=== PATIENT | female | born 1940 | race Caucasian/White ===

== ENCOUNTER → 2016-09-16 | Outpatient (CLI) | payer MEDICARE ==
[~2016-09-16] MED LIST: ASPIR-LOW81 MG PO; ATENOLOL50 MG PO; BENADRYL25 MG PO; BUMETANIDE0.5 MG PO; BUMETANIDE1 MG PO; BUSPAR5 MG PO; CARDIZEM CD120 MG PO; CARDIZEM CD240 M1 PO; CARDIZEM CD240 MG PO; CIPROFLOXACIN500 MG PO; COLACE1 SUP; COUMADIN PO; COUMADIN4 M1 PO; COUMADIN5 M2 PO; COUMADIN6 MG PO; DAILY VITAMIN1 EAC2 PO; DAYPRO600 M1 PO; DOCUSOFT-S100 MG PO; FLECAINIDE ACE100 MG PO; HYDROCODONE BIT1 T11 PO; LAMICTAL100 MG PO; LEVOTHYROXINE0.1 M1 PO; LEVOTHYROXINE0.1 MG PO; MACROBID100 M1 PO; MIRALAX POWDER17 G1 PO; MIRALAX17 GM/DOSE; MIRALAX17 GM/PACK PO; NOVAPLUS V0.09 MG/Ac INH; PEPCID20 MG PO; POTASSIUM CHLO10 ME5 PO; PROAIR HFA8.5 GM INH; QVAR0.08 MG/AC IH; QVAR0.08 MG/AC INH; SENOKOT; STOOL SOFT60 MG/15 M; SYNTHROID0.1 MG PO; SYNTHROID0.112 MG PO; TORADOL60 MG/2 ML PO; TRAMADOL HCL50 MG; TYLENOL325 M1 PO; VICODIN 500 MG-1 TAB PO; VITAMIN B125000 MCG SL; ZITHROMAX Z PA250 MG PO; ZOCOR20 MG PO; ZOFRAN2 MG/ML IJ; ZOFRAN4 MG PO; Zofran4 MG PO; [UNRECOGNIZED DRUG - OTHER] PO
[2016-09-16 09:38] LABS: BASO % 0.2 % (0.0-1.0); EOS # 0.1 10*3/uL (0.0-0.4); HEMATOCRIT 39.9 % (37.0-47.0); LYMPH # 1.4 10*3/uL (1.3-4.4); LYMPH % 31.8 % (27.0-41.0); MEAN CELL VOLUME 93.7 fl (81.0-99.0); MEAN CORPUSCULAR HGB 30.5 pg (27.0-31.0); MEAN CORPUSCULAR HGB CONC 32.6 g/dl (33.0-37.0); MEAN PLATELET VOLUME 10.4 fl (9.6-12.3); MONO # 0.3 10*3/uL (0.1-1.0); MONO % 7.2 % (3.0-9.0); NEUT # 2.5 10*3/uL (2.3-7.9); NEUT % 57.8 % (47.0-73.0); PLATELET COUNT AUTOMATED 226 10*3/uL (130-400); RED BLOOD COUNT 4.26 10*6/uL (4.10-5.10); WHITE BLOOD COUNT 4.3 10*3/uL (4.8-10.8)
[2016-09-16 09:57] LABS: HEMOGLOBIN A1c 6.1 % (4.8-5.6)
[2016-09-16 10:16] LABS: ALBUMIN 4.1 gm/dl (3.1-4.5); BILIRUBIN, DIRECT 0.1 mg/dL (0.0-0.2); BILIRUBIN, TOTAL 0.6 mg/dl (0.2-1.0); POTASSIUM 3.9 mmol/L (3.5-5.1); THYROXINE (T4) TOTAL 12.1 ug/dl (4.8-13.9); TOTAL PROTEIN 7.6 gm/dL (6.4-8.2)
[2016-09-16 10:20] LABS: THYROID STIM HORMONE (HS) 6.03 uIU/ml (0.358-4.75)
== END | disposition home or self-care (01) ==
LOC: LAB 09:05 → RAD 13:30
PROVIDERS: Family Medicine
DX: I10 Essential (primary) hypertension (principal); I48.91 Unspecified atrial fibrillation; E03.9 Hypothyroidism, unspecified; M81.0 Age-related osteoporosis without current pathological fracture; R73.9 Hyperglycemia, unspecified

== ENCOUNTER 2016-10-30 01:10 | Inpatient (IN) | payer MEDICARE ==
[~2016-10-30] VITALS: Ht 180.3 cm; Wt 66.8 kg
[2016-10-30] VITALS (7 sets, daily range): BP systolic 130–153; BP diastolic 64–96
--- NOTE | ~2016-10-30 | CON ---
[place], [place] REPORT OF CONSULTATION NAME: [id number] UN[facility] #: [id number] ROOM: 428 DOCTOR: DEVAN INFANTEALECIA BIRTHDATE: [birth year] DOS: 10/31/2016 HISTORY OF PRESENT ILLNESS: This is a 76 years old patient who has presented with chief complaint of nausea, epigastric distress, anorexia, unable to eat. She has had gallbladder, which was 12% functional and she is status post cholecystectomy last month. White blood cell at this time has been 4.4. Her H and H of 13 and 41. Comprehensive metabolic panel, BUN and creatinine 19 and 1.2, GFR 52. Liver function test has been normal. Lipase normal. Troponin within normal limits and magnesium 2.2. Acute abdominal series, no acute pathology was seen. CT scan of the abdomen and pelvis was done, colonic diverticulosis without evidence of diverticulitis, status post cholecystectomy, otherwise normal. Thyroid, amylase, and lipase were reassessed, which was within normal limits. PAST MEDICAL HISTORY: Associated chronic renal insufficiency, anxiety, atrial fibrillation, hypothyroidism, hypercholesterolemia, seizure disorder, TIA. PAST SURGICAL HISTORY: Recent cholecystectomy, cataract, thyroidectomy, pacemaker. SOCIAL HISTORY: Nonsmoker, nonalcohol consumer. FAMILY HISTORY: Noncontributory. ALLERGIES: TO CIPROFLOXACIN AND REGLAN. MEDICATIONS: List has been reviewed including warfarin and aspirin. REVIEW OF SYSTEMS: In general, HEENT: Denies double vision, blurred vision. RESPIRATORY: Denies acute shortness of breath. CARDIOVASCULAR: Denies acute chest pain. DIGESTIVE SYSTEM: Anorexia, frequent stooling. PHYSICAL EXAMINATION: VITAL SIGNS: Stable. HEENT: Head normocephalic, nontraumatic. Mouth and buccal mucosa benign. NECK: Supple. No thyromegaly, no cervical lymphadenopathy. CHEST: Symmetric anatomy, equal expansion. . HEART: Atrial fibrillation, moderate ventricular response. ABDOMEN: Soft. No hepato-organomegaly. Bowel sounds present. No pulsatile mass. Nonspecific epigastric pain. EXTREMITIES: No cyanosis, no pedal edema. NEUROLOGIC: Alert and oriented to time, place and person. LABORATORY DATA: Labs reviewed. Records reviewed. IMPRESSION: Nausea, epigastric distress, atrial fibrillation, chronic renal insufficiency, seizure disorder, anxiety and other adjunctive diagnoses as outlined in the paragraph of past medical and surgical history, status post [place], [place] REPORT OF CONSULTATION NAME: SHER MCWILLIAMS V UNIT #: [id number] ROOM: 428 DOCTOR: DEVAN INFANTE,ALECIA BIRTHDATE: [birth year] cholecystectomy with normal LFTs, amylase and lipase postop. PLAN AND DISCUSSION: We will assess endoscopically. ALECIA HARTMAN MD CM:CONSTR:REPORT OF CONSULTATION 1355 11/01/16 0500 interface
--- NOTE | ~2016-10-30 | O ---
[place], [place] OPERATIVE NOTE NAME: [id number] UNIT #: [id number] ROOM: 428 DOCTOR: ALECIA HARTMAN MD BIRTHDATE: [birth year] DOS: INDICATIONS: The patient presented with chief complaint of anorexia, epigastric distress. She is status post cholecystectomy. PROCEDURE: Today's procedure part of investigation is panendoscopy plus photographic series. PREMEDICATION: Versed and Diprivan. SCOPE: Olympus forward-viewing gastroscope Q10 video. REPORT: After putting the patient in the left lateral position and after application of lubricant to the scope, the scope was introduced. Thereafter, under direct visualization, I advanced through the length of the esophagus without difficulty. Gastric pouch was entered. Bile reflux gastritis was seen. Duodenal bulb, second and third part within normal limits. The patient was gradually extubated. She tolerated the procedure well. No biopsies obtained due to the fact the patient has been on anticoagulant. IMPRESSION: Bile reflux gastritis. PLAN AND DISCUSSION: Protonix 40 mg daily, Reglan 5 mg daily to break the cycle of anorexia and clinical reassessment tomorrow. Soft diet is going to be instituted. Thank you very much indeed for your kind referral. ALECIA HARTMAN MD CM:OPRECORD:OPERATIVE NOTE 1406 15 ALECIA HARTMAN MD 10/31/161816 interface
--- NOTE | ~2016-10-30 | EKG ---
[place], [place] ELECTROCARDIOGRAM REPORT NAME: SHER MCWILLIAMS V UNIT #: [id number] ROOM: 428 DOCTOR: SONDRA ELDER MD BIRTHDATE: [birth year] DOS: 10/30/2016 TIME: 0200 FINDINGS: 1. Underlying rhythm appears to be atrial fibrillation with a controlled ventricular response. 2. The patient does have a ventricular pacemaker and is pacing in the ventricle for the most part. 3. Occasional fusion beats are noted. 4. Abnormal electrocardiogram with apparent normal pacer function. SONDRA ELDER MD CM:EKGRPT:ELECTROCARDIOGRAM REPORT [id number] SONDRA ELDER MD
[2016-10-30] MEDS ORDERED: SYNTHROID,LEV125 MCG PO (01:21)
[2016-10-30 01:59] LABS: BASO % 0.2 % (0.0-1.0); EOS # 0.1 10*3/uL (0.0-0.4); EOS % 1.4 % (1.0-4.0); HEMATOCRIT 41.2 % (37.0-47.0); HEMOGLOBIN 13.4 g/dl (12.0-16.0); LYMPH # 1.3 10*3/uL (1.3-4.4); MEAN CELL VOLUME 94.3 fl (81.0-99.0); MEAN CORPUSCULAR HGB 30.7 pg (27.0-31.0); MEAN CORPUSCULAR HGB CONC 32.5 g/dl (33.0-37.0); MEAN PLATELET VOLUME 10.1 fl (9.6-12.3); MONO # 0.3 10*3/uL (0.1-1.0); MONO % 7.2 % (3.0-9.0); NEUT # 2.7 10*3/uL (2.3-7.9); PLATELET COUNT AUTOMATED 170 10*3/uL (130-400); RED BLOOD COUNT 4.37 10*6/uL (4.10-5.10); RED CELL DISTRI WIDTH 13.5 % (0-14.5); WHITE BLOOD COUNT 4.4 10*3/uL (4.8-10.8)
[2016-10-30 02:16] LABS: ALBUMIN 3.9 gm/dl (3.1-4.5); ALKALINE PHOSPHATASE 76 U/L (45-117); BILIRUBIN, TOTAL 0.5 mg/dl (0.2-1.0); BUN 19 mg/dl (7-24); CARBON DIOXIDE 27 mmol/L (21-32); CHLORIDE 104 mmol/L (98-107); EST GLOM FILT AFRICAN AMERICAN 52 ml/min; GLUCOSE 122 mg/dL (65-99); MAGNESIUM 2.2 mg/dL (1.5-2.1); POTASSIUM 3.9 mmol/L (3.5-5.1); SGOT/AST 23 IU/L (3-35); SGPT/ALT 27 U/L (12-78); SODIUM 141 mmol/L (136-145); TOTAL PROTEIN 7.1 gm/dL (6.4-8.2); TROPONIN I 0.022 ng/ml (<0.045)
[2016-10-30 02:17] LABS: C-REACTIVE PROTEIN < 0.29 MG/DL (0-0.3)
[2016-10-30 03:35] LABS: BILIRUBIN NEGATIVE (NEGATIVE); BLOOD NEGATIVE (NEGATIVE); CLARITY CLEAR (CLEAR); COLOR YELLOW (YELLOW); GLUCOSE NEGATIVE (NEGATIVE); KETONE NEGATIVE (NEGATIVE); LEUKO ESTERASE NEGATIVE (NEGATIVE); NITRITE NEGATIVE (NEGATIVE); PROTEIN NEGATIVE (NEGATIVE); SPECIFIC GRAVITY <= 1.005 (1.005-1.030); UROBILINOGEN 0.2 E.U./dl (0.2-1.0)
[2016-10-30 03:53] LABS: RBC 0-2 rbc/hpf (0-2); URINE REFLEX COMMENT NO (NO); WBC 0-2 wbc/hpf (0-5)
[2016-10-30] MEDS ORDERED: MIRALAX17 GM PO (04:18)
[2016-10-30 07:18] LABS: FREE T4 1.3 ng/dl (0.76-1.46); PROTHROMBIN TIME 33.9 SECONDS (9.0-12.4)
[2016-10-30 07:24] LABS: THYROID STIM HORMONE (HS) 3.16 uIU/ml (0.358-4.75)
[2016-10-30 07:28] LABS: HEMOGLOBIN A1c 6.1 % (4.8-5.6)
[2016-10-31] VITALS (8 sets, daily range): BP systolic 121–156; BP diastolic 72–83
[2016-10-31 06:24] LABS: BASO % 0.3 % (0.0-1.0); EOS # 0.1 10*3/uL (0.0-0.4); EOS % 3.3 % (1.0-4.0); HEMATOCRIT 42.1 % (37.0-47.0); HEMOGLOBIN 13.8 g/dl (12.0-16.0); LYMPH # 0.8 10*3/uL (1.3-4.4); LYMPH % 24.6 % (27.0-41.0); MEAN CELL VOLUME 94.6 fl (81.0-99.0); MEAN CORPUSCULAR HGB CONC 32.8 g/dl (33.0-37.0); MEAN PLATELET VOLUME 10.5 fl (9.6-12.3); MONO # 0.1 10*3/uL (0.1-1.0); MONO % 4.2 % (3.0-9.0); NEUT # 2.3 10*3/uL (2.3-7.9); NEUT % 67.6 % (47.0-73.0); PLATELET COUNT AUTOMATED 158 10*3/uL (130-400); RED BLOOD COUNT 4.45 10*6/uL (4.10-5.10); RED CELL DISTRI WIDTH 13.8 % (0-14.5); WHITE BLOOD COUNT 3.4 10*3/uL (4.8-10.8)
[2016-10-31 06:49] LABS: PROTHROMBIN TIME 34.3 SECONDS (9.0-12.4)
[2016-11-01] VITALS: BP 130/84
[2016-11-01 07:02] LABS: BASO % 0.3 % (0.0-1.0); EOS # 0.1 10*3/uL (0.0-0.4); EOS % 1.9 % (1.0-4.0); HEMATOCRIT 40.6 % (37.0-47.0); HEMOGLOBIN 13.1 g/dl (12.0-16.0); LYMPH # 0.6 10*3/uL (1.3-4.4); LYMPH % 19.1 % (27.0-41.0); MEAN CELL VOLUME 95.5 fl (81.0-99.0); MEAN CORPUSCULAR HGB 30.8 pg (27.0-31.0); MEAN CORPUSCULAR HGB CONC 32.3 g/dl (33.0-37.0); MEAN PLATELET VOLUME 10.2 fl (9.6-12.3); MONO # 0.2 10*3/uL (0.1-1.0); MONO % 6.5 % (3.0-9.0); NEUT # 2.3 10*3/uL (2.3-7.9); NEUT % 71.9 % (47.0-73.0); PLATELET COUNT AUTOMATED 141 10*3/uL (130-400); RED BLOOD COUNT 4.25 10*6/uL (4.10-5.10); RED CELL DISTRI WIDTH 13.7 % (0-14.5); WHITE BLOOD COUNT 3.2 10*3/uL (4.8-10.8)
[2016-11-01 07:34] LABS: INTERNATIONAL NORM RATIO 2.7 (2.0-3.5); PROTHROMBIN TIME 30.7 SECONDS (9.0-12.4)
[2016-11-01 07:36] LABS: BUN 9 mg/dl (7-24); CARBON DIOXIDE 27 mmol/L (21-32); CHLORIDE 109 mmol/L (98-107); GLUCOSE 89 mg/dL (65-99); POTASSIUM 3.6 mmol/L (3.5-5.1); SODIUM 144 mmol/L (136-145)
[2016-11-01 07:37] LABS: EST GLOM FILT AFRICAN AMERICAN > 60 ml/min
[2016-11-01 08:00] VITALS: BP 135/79
[2016-11-01 12:00] VITALS: BP 143/71
[2016-11-01] MEDS ORDERED: ZOFRAN4 MG PO (13:13)
[2016-11-01] MEDS ORDERED: FLAGYL500 MG PO (13:13)
[2016-11-01] MEDS ORDERED: PROTONIX40 MG PO (13:15)
== END 2016-11-01 15:45 | disposition home or self-care (01) | DRG 392 ==
LOC: ED 01:10 → EDHOLD 03:19 → 4E 03:19
PROVIDERS: Emergency Medicine Emergency Medical Services; Internal Medicine
PROC: 0DJ08ZZ Inspection of Upper Intestinal Tract, Via Natural or Artificial Opening Endoscopic (ICD-10-PCS; principal; 2016-10-31)
DX: A08.4 Viral intestinal infection, unspecified (principal); E44.0 Moderate protein-calorie malnutrition; I48.2 Chronic atrial fibrillation; D68.69 Other thrombophilia; N18.3 Chronic kidney disease, stage 3 (moderate); E83.41 Hypermagnesemia; K57.92 Diverticulitis of intestine, part unspecified, without perforation or abscess without bleeding; R63.4 Abnormal weight loss; F41.9 Anxiety disorder, unspecified; E03.9 Hypothyroidism, unspecified; G40.909 Epilepsy, unspecified, not intractable, without status epilepticus; E78.00 Pure hypercholesterolemia, unspecified; E89.0 Postprocedural hypothyroidism; R73.9 Hyperglycemia, unspecified; R73.03 Prediabetes; D72.810 Lymphocytopenia; Z87.440 Personal history of urinary (tract) infections; Z86.73 Personal history of transient ischemic attack (TIA), and cerebral infarction without residual deficits; Z68.20 Body mass index [BMI] 20.0-20.9, adult; Z98.49 Cataract extraction status, unspecified eye; Z95.0 Presence of cardiac pacemaker; Z80.8 Family history of malignant neoplasm of other organs or systems; Z82.49 Family history of ischemic heart disease and other diseases of the circulatory system; Z88.1 Allergy status to other antibiotic agents; Z88.8 Allergy status to other drugs, medicaments and biological substances; Z79.82 Long term (current) use of aspirin; Z79.01 Long term (current) use of anticoagulants; Z79.899 Other long term (current) drug therapy; Z90.49 Acquired absence of other specified parts of digestive tract; Z68.21 Body mass index [BMI] 21.0-21.9, adult

== ENCOUNTER 2016-11-03 22:12 | Emergency (ER) | payer MEDICARE ==
[~2016-11-03] VITALS: Ht 175.2 cm; Wt 64.4 kg
[~2016-11-03 22:12] MED LIST changes: +FLAGYL500 MG PO; +MIRALAX17 GM PO; +PROTONIX40 MG PO; +SYNTHROID,LEV125 MCG PO
[2016-11-03 22:15] VITALS: BP 148/70
[2016-11-03 22:29] LABS: BASO % 0.2 % (0.0-1.0); EOS # 0.1 10*3/uL (0.0-0.4); EOS % 1.4 % (1.0-4.0); HEMATOCRIT 37.7 % (37.0-47.0); HEMOGLOBIN 12.5 g/dl (12.0-16.0); LYMPH # 1.2 10*3/uL (1.3-4.4); MEAN CELL VOLUME 93.1 fl (81.0-99.0); MEAN CORPUSCULAR HGB 30.9 pg (27.0-31.0); MEAN CORPUSCULAR HGB CONC 33.2 g/dl (33.0-37.0); MEAN PLATELET VOLUME 10.2 fl (9.6-12.3); MONO # 0.4 10*3/uL (0.1-1.0); MONO % 9.3 % (3.0-9.0); NEUT # 2.6 10*3/uL (2.3-7.9); NEUT % 60.1 % (47.0-73.0); PLATELET COUNT AUTOMATED 169 10*3/uL (130-400); RED BLOOD COUNT 4.05 10*6/uL (4.10-5.10); RED CELL DISTRI WIDTH 13.6 % (0-14.5); WHITE BLOOD COUNT 4.3 10*3/uL (4.8-10.8)
[2016-11-03 22:31] LABS: BILIRUBIN NEGATIVE (NEGATIVE); BLOOD NEGATIVE (NEGATIVE); CLARITY CLEAR (CLEAR); COLOR YELLOW (YELLOW); GLUCOSE NEGATIVE (NEGATIVE); KETONE NEGATIVE (NEGATIVE); LEUKO ESTERASE NEGATIVE (NEGATIVE); NITRITE NEGATIVE (NEGATIVE); PH 6.5 (5.0-9.0); PROTEIN NEGATIVE (NEGATIVE); SPECIFIC GRAVITY <= 1.005 (1.005-1.030); UROBILINOGEN 0.2 E.U./dl (0.2-1.0)
[2016-11-03 22:40] LABS: BACTERIA TRACE; EPITHELIAL CELLS 0-2; RBC 0-2 rbc/hpf (0-2); URINE REFLEX COMMENT NO (NO); WBC 0-2 wbc/hpf (0-5)
[2016-11-03 22:44] LABS: ALBUMIN 3.8 gm/dl (3.1-4.5); BILIRUBIN, TOTAL 0.5 mg/dl (0.2-1.0); MAGNESIUM 2.2 mg/dL (1.5-2.1); POTASSIUM 3.9 mmol/L (3.5-5.1); TOTAL PROTEIN 6.9 gm/dL (6.4-8.2)
[2016-11-04] MEDS ORDERED: ZOFRAN ODT4 MG SL (01:37)
[2016-11-04] MEDS ORDERED: LOMOTIL 0.025 M1 TA1 PO (01:37)
== END 2016-11-04 01:42 | disposition home or self-care (01) ==
LOC: ED
PROVIDERS: Emergency Medicine Emergency Medical Services; Internal Medicine
DX: K52.9 Noninfective gastroenteritis and colitis, unspecified (principal); I48.91 Unspecified atrial fibrillation; F41.9 Anxiety disorder, unspecified; E03.9 Hypothyroidism, unspecified; Z86.73 Personal history of transient ischemic attack (TIA), and cerebral infarction without residual deficits; Z79.82 Long term (current) use of aspirin; Z79.899 Other long term (current) drug therapy; Z88.1 Allergy status to other antibiotic agents; Z95.0 Presence of cardiac pacemaker; Z88.8 Allergy status to other drugs, medicaments and biological substances

== ENCOUNTER → 2017-03-13 | Outpatient (CLI) | payer MEDICARE ==
[~2017-03-13] MED LIST changes: +LOMOTIL 0.025 M1 TA1 PO; +ZOFRAN ODT4 MG SL
== END | disposition home or self-care (01) ==
LOC: RAD 11:52
DX: M43.17 Spondylolisthesis, lumbosacral region (principal); M47.897 Other spondylosis, lumbosacral region

== ENCOUNTER → 2017-04-17 | Outpatient (CLI) | payer MEDICARE ==
[2017-04-17 10:14] LABS: CREATININE 1.12 mg/dL (0.55-1.02)
== END | disposition home or self-care (01) ==
LOC: LAB 09:38
PROVIDERS: Radiology Diagnostic Radiology
DX: J01.90 Acute sinusitis, unspecified (principal); M25.552 Pain in left hip

== ENCOUNTER → 2017-04-18 | Outpatient (CLI) | payer MEDICARE | END | disposition home or self-care (01) | LOC: CT 04-17 09:37 | DX: M25.552 Pain in left hip (principal); N28.1 Cyst of kidney, acquired; I10 Essential (primary) hypertension; Z90.49 Acquired absence of other specified parts of digestive tract; Z95.0 Presence of cardiac pacemaker; Z96.641 Presence of right artificial hip joint ==

== ENCOUNTER → 2017-07-01 | Outpatient (CLI) | payer MEDICARE ==
[2017-07-01 12:47] LABS: BASO % 0.2 % (0.0-1.0); EOS # 0.1 10*3/uL (0.0-0.4); EOS % 1.6 % (1.0-4.0); HEMATOCRIT 38.6 % (37.0-47.0); HEMOGLOBIN 12.8 g/dl (12.0-16.0); LYMPH # 1.2 10*3/uL (1.3-4.4); LYMPH % 27.3 % (27.0-41.0); MEAN CELL VOLUME 95.1 fl (81.0-99.0); MEAN CORPUSCULAR HGB 31.5 pg (27.0-31.0); MEAN CORPUSCULAR HGB CONC 33.2 g/dl (33.0-37.0); MEAN PLATELET VOLUME 10.3 fl (9.6-12.3); MONO # 0.3 10*3/uL (0.1-1.0); MONO % 7.3 % (3.0-9.0); NEUT # 2.9 10*3/uL (2.3-7.9); NEUT % 63.6 % (47.0-73.0); PLATELET COUNT AUTOMATED 223 10*3/uL (130-400); RED BLOOD COUNT 4.06 10*6/uL (4.10-5.10); RED CELL DISTRI WIDTH 14.3 % (0-14.5); WHITE BLOOD COUNT 4.5 10*3/uL (4.8-10.8)
[2017-07-01 13:14] LABS: ALBUMIN 3.6 gm/dl (3.1-4.5); ALKALINE PHOSPHATASE 124 U/L (45-117); BILIRUBIN, DIRECT < 0.1 mg/dL (0.0-0.2); BUN 22 mg/dl (7-24); CHLORIDE 104 mmol/L (98-107); CREATININE 1.27 mg/dL (0.55-1.02); POTASSIUM 4.1 mmol/L (3.5-5.1); SGOT/AST 29 IU/L (3-35); SGPT/ALT 31 U/L (12-78); SODIUM 141 mmol/L (136-145); THYROXINE (T4) TOTAL 10.1 ug/dl (4.8-13.9); TOTAL PROTEIN 7.4 gm/dL (6.4-8.2)
== END | disposition home or self-care (01) ==
LOC: LAB 12:12
PROVIDERS: Family Medicine
DX: E03.9 Hypothyroidism, unspecified (principal); R73.9 Hyperglycemia, unspecified; N28.9 Disorder of kidney and ureter, unspecified; E55.9 Vitamin D deficiency, unspecified

== ENCOUNTER → 2017-07-02 | Outpatient (CLI) | payer MEDICARE | END | disposition home or self-care (01) | LOC: CT 13:00 | DX: M81.0 Age-related osteoporosis without current pathological fracture (principal); M48.061 Spinal stenosis, lumbar region without neurogenic claudication; M51.26 Other intervertebral disc displacement, lumbar region ==

== ENCOUNTER → 2017-07-31 | Outpatient (CLI) | payer MEDICARE ==
[2017-07-31 12:59] LABS: INTERNATIONAL NORM RATIO 2.2 (2.0-3.5)
== END | disposition home or self-care (01) ==
LOC: LAB 12:06
PROVIDERS: Family Medicine
DX: I48.91 Unspecified atrial fibrillation (principal)

== ENCOUNTER → 2017-08-26 | Outpatient (CLI) | payer MEDICARE ==
[2017-08-26 12:49] LABS: INTERNATIONAL NORM RATIO 2.5 (2.0-3.5)
== END | disposition home or self-care (01) ==
LOC: LAB 11:55
PROVIDERS: Family Medicine
DX: I48.91 Unspecified atrial fibrillation (principal)

== ENCOUNTER → 2017-10-07 | Outpatient (CLI) | payer MEDICARE ==
[2017-10-07 13:28] LABS: ACT PARTIAL THROMBO TIME 30.6 SECONDS (20.8-31.5); INTERNATIONAL NORM RATIO 1.9 (2.0-3.5)
== END | disposition home or self-care (01) ==
LOC: LAB 12:28
PROVIDERS: Family Medicine
DX: I48.91 Unspecified atrial fibrillation (principal)

== ENCOUNTER → 2017-11-04 | Outpatient (CLI) | payer MEDICARE ==
[2017-11-04 12:37] LABS: INTERNATIONAL NORM RATIO 1.9 (2.0-3.5)
== END | disposition home or self-care (01) ==
LOC: LAB 11:52
PROVIDERS: Family Medicine
DX: I48.91 Unspecified atrial fibrillation (principal)

== ENCOUNTER → 2017-11-30 | Outpatient (CLI) | payer MEDICARE ==
[2017-11-30 13:12] LABS: BASO % 0.3 % (0.0-1.0); EOS # 0.1 10*3/uL (0.0-0.4); EOS % 1.2 % (1.0-4.0); HEMATOCRIT 43.7 % (37.0-47.0); HEMOGLOBIN 13.7 g/dl (12.0-16.0); LYMPH # 1.2 10*3/uL (1.3-4.4); LYMPH % 19.4 % (27.0-41.0); MEAN CELL VOLUME 96.9 fl (81.0-99.0); MEAN CORPUSCULAR HGB 30.4 pg (27.0-31.0); MEAN CORPUSCULAR HGB CONC 31.4 g/dl (33.0-37.0); MEAN PLATELET VOLUME 10.7 fl (9.6-12.3); MONO # 0.4 10*3/uL (0.1-1.0); MONO % 6.8 % (3.0-9.0); NEUT # 4.3 10*3/uL (2.3-7.9); NEUT % 72.1 % (47.0-73.0); PLATELET COUNT AUTOMATED 252 10*3/uL (130-400); RED BLOOD COUNT 4.51 10*6/uL (4.10-5.10); RED CELL DISTRI WIDTH 13.4 % (0-14.5)
[2017-11-30 13:43] LABS: ALBUMIN 4.2 gm/dl (3.1-4.5); BILIRUBIN, DIRECT 0.1 mg/dL (0.0-0.2); CREATININE 1.43 mg/dL (0.55-1.02); INTERNATIONAL NORM RATIO 2.4 (2.0-3.5); TOTAL PROTEIN 8.3 gm/dL (6.4-8.2)
== END | disposition home or self-care (01) ==
LOC: LAB 12:18
PROVIDERS: Family Medicine
DX: I48.91 Unspecified atrial fibrillation (principal); R73.9 Hyperglycemia, unspecified

== ENCOUNTER 2018-01-20 03:22 | Emergency (ER) | payer MEDICARE ==
[~2018-01-20] VITALS: Ht 180.3 cm; Wt 90.7 kg
[2018-01-20 03:28] VITALS: BP 147/76
[2018-01-20 03:49] LABS: BASO % 0.4 % (0.0-1.0); EOS % 0.9 % (1.0-4.0); HEMATOCRIT 42.8 % (37.0-47.0); HEMOGLOBIN 13.7 g/dl (12.0-16.0); LYMPH # 1.2 10*3/uL (1.3-4.4); LYMPH % 25.6 % (27.0-41.0); MEAN CELL VOLUME 95.1 fl (81.0-99.0); MEAN CORPUSCULAR HGB 30.4 pg (27.0-31.0); MEAN PLATELET VOLUME 10.2 fl (9.6-12.3); MONO # 0.3 10*3/uL (0.1-1.0); MONO % 7.3 % (3.0-9.0); NEUT % 65.8 % (47.0-73.0); PLATELET COUNT AUTOMATED 224 10*3/uL (130-400); RED CELL DISTRI WIDTH 13.8 % (0-14.5); WHITE BLOOD COUNT 4.5 10*3/uL (4.8-10.8)
[2018-01-20 03:58] LABS: INTERNATIONAL NORM RATIO 2.8 (2.0-3.5)
== END 2018-01-20 04:22 | disposition home or self-care (01) ==
LOC: ED 03:22
PROVIDERS: Student in an Organized Health Care Education/Training Program
DX: H92.21 Otorrhagia, right ear (principal); I48.2 Chronic atrial fibrillation; Z98.890 Other specified postprocedural states; Z90.89 Acquired absence of other organs; Z95.0 Presence of cardiac pacemaker; Z79.82 Long term (current) use of aspirin; Z79.01 Long term (current) use of anticoagulants; Z79.899 Other long term (current) drug therapy; Z88.1 Allergy status to other antibiotic agents; Z88.8 Allergy status to other drugs, medicaments and biological substances

== ENCOUNTER 2018-01-27 17:30 | Emergency (ER) | payer MEDICARE ==
[~2018-01-27] VITALS: Ht 167.6 cm; Wt 72.6 kg
--- NOTE | ~2018-01-27 | EKG ---
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
[2018-01-27 18:00] LABS: BILIRUBIN NEGATIVE (NEGATIVE); BLOOD NEGATIVE (NEGATIVE); CLARITY CLEAR (CLEAR); COLOR YELLOW (YELLOW); GLUCOSE NEGATIVE (NEGATIVE); KETONE TRACE (NEGATIVE); LEUKO ESTERASE NEGATIVE (NEGATIVE); NITRITE NEGATIVE (NEGATIVE); UROBILINOGEN 0.2 E.U./dl (0.2-1.0)
[2018-01-27 18:06] LABS: BACTERIA 1+
[2018-01-27 18:07] LABS: BASO % 0.3 % (0.0-1.0); EOS % 0.5 % (1.0-4.0); HEMATOCRIT 39.2 % (37.0-47.0); HEMOGLOBIN 12.9 g/dl (12.0-16.0); LYMPH # 1.5 10*3/uL (1.3-4.4); LYMPH % 20.8 % (27.0-41.0); MEAN CELL VOLUME 94.5 fl (81.0-99.0); MEAN CORPUSCULAR HGB 31.1 pg (27.0-31.0); MEAN CORPUSCULAR HGB CONC 32.9 g/dl (33.0-37.0); MEAN PLATELET VOLUME 10.5 fl (9.6-12.3); MONO # 0.5 10*3/uL (0.1-1.0); MONO % 6.8 % (3.0-9.0); NEUT # 5.3 10*3/uL (2.3-7.9); NEUT % 71.2 % (47.0-73.0); PLATELET COUNT AUTOMATED 205 10*3/uL (130-400); RED BLOOD COUNT 4.15 10*6/uL (4.10-5.10); WHITE BLOOD COUNT 7.4 10*3/uL (4.8-10.8)
[2018-01-27 18:16] LABS: INTERNATIONAL NORM RATIO 2.3 (2.0-3.5)
[2018-01-27 18:24] LABS: ALKALINE PHOSPHATASE 82 U/L (45-117); BUN 18 mg/dl (7-24); CHLORIDE 101 mmol/L (98-107); CREATININE 0.92 mg/dL (0.55-1.02); POTASSIUM 3.8 mmol/L (3.5-5.1); SGOT/AST 29 IU/L (3-35); SGPT/ALT 30 U/L (12-78); SODIUM 136 mmol/L (136-145); TOTAL PROTEIN 7.6 gm/dL (6.4-8.2); TROPONIN I < 0.015 ng/ml (<0.045)
[2018-01-27 22:29] VITALS: BP 130/66
== END 2018-01-27 22:51 | disposition short-term general hospital (02) ==
LOC: ED 17:30
PROVIDERS: Nurse Practitioner Family
DX: S72.145A Nondisplaced intertrochanteric fracture of left femur, initial encounter for closed fracture (principal); I25.2 Old myocardial infarction; I48.2 Chronic atrial fibrillation; N18.9 Chronic kidney disease, unspecified; E78.00 Pure hypercholesterolemia, unspecified; E03.9 Hypothyroidism, unspecified; D68.59 Other primary thrombophilia; Z79.01 Long term (current) use of anticoagulants; Z86.73 Personal history of transient ischemic attack (TIA), and cerebral infarction without residual deficits; Z88.1 Allergy status to other antibiotic agents; Z88.8 Allergy status to other drugs, medicaments and biological substances; Z79.899 Other long term (current) drug therapy; Z79.82 Long term (current) use of aspirin; Z95.0 Presence of cardiac pacemaker; W19.XXXA Unspecified fall, initial encounter; Y93.01 Activity, walking, marching and hiking; Y92.89 Other specified places as the place of occurrence of the external cause; Y99.8 Other external cause status

== ENCOUNTER 2018-03-12 11:59 | Emergency (ER) | payer MEDICARE ==
[~2018-03-12] VITALS: Ht 167.6 cm; Wt 72.6 kg
[2018-03-12 13:08] LABS: BASO % 0.2 % (0.0-1.0); EOS % 0.7 % (1.0-4.0); HEMATOCRIT 36.2 % (37.0-47.0); HEMOGLOBIN 11.5 g/dl (12.0-16.0); LYMPH % 16.8 % (27.0-41.0); MEAN CELL VOLUME 99.5 fl (81.0-99.0); MEAN CORPUSCULAR HGB 31.6 pg (27.0-31.0); MEAN CORPUSCULAR HGB CONC 31.8 g/dl (33.0-37.0); MONO # 0.4 10*3/uL (0.1-1.0); MONO % 6.7 % (3.0-9.0); NEUT # 4.3 10*3/uL (2.3-7.9); NEUT % 75.4 % (47.0-73.0); PLATELET COUNT AUTOMATED 261 10*3/uL (130-400); RED BLOOD COUNT 3.64 10*6/uL (4.10-5.10); WHITE BLOOD COUNT 5.7 10*3/uL (4.8-10.8)
[2018-03-12 13:17] LABS: ACT PARTIAL THROMBO TIME 29.8 SECONDS (20.8-31.5); INTERNATIONAL NORM RATIO 1.2 (2.0-3.5)
[2018-03-12 13:24] LABS: ALBUMIN 3.7 gm/dl (3.1-4.5); CREATININE 1.14 mg/dL (0.55-1.02); TOTAL PROTEIN 7.6 gm/dL (6.4-8.2)
[2018-03-12 14:12] VITALS: BP 116/71
[2018-04-12] MEDS ORDERED: PEPCID20 MG PO (20:51)
[2018-04-12] MEDS ORDERED: XARE20MG PO (20:54)
[2018-04-12] MEDS ORDERED: SENNA8.6 MG PO (20:55)
[2018-04-13] MEDS ORDERED: CARDIZEM120 MG PO (17:12)
[2018-04-16] MEDS ORDERED: KEFLEX250 MG PO (15:15)
== END 2018-03-12 15:30 | disposition home or self-care (01) ==
LOC: ED 11:59
PROVIDERS: Nurse Practitioner Family
DX: Z48.01 Encounter for change or removal of surgical wound dressing (principal); Z88.8 Allergy status to other drugs, medicaments and biological substances; Z79.01 Long term (current) use of anticoagulants; Z79.82 Long term (current) use of aspirin; Z79.899 Other long term (current) drug therapy; Z98.890 Other specified postprocedural states; Z88.1 Allergy status to other antibiotic agents

== ENCOUNTER 2018-05-16 17:00 | Inpatient (IN) | payer MEDICARE ==
[~2018-05-16] VITALS: Ht 179.1 cm; Wt 74.9 kg
--- NOTE | ~2018-05-16 | EKG ---
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
[~2018-05-16 17:00] MED LIST changes: +CARDIZEM120 MG PO; +KEFLEX250 MG PO; +SENNA8.6 MG PO; +XARE20MG PO
[2018-05-16 17:02] VITALS: BP 152/79
[2018-05-16 17:09] VITALS: BP 158/93
[2018-05-16 17:24] LABS: BASO % 0.2 % (0.0-1.0); EOS % 0.9 % (1.0-4.0); HEMOGLOBIN 13.2 g/dl (12.0-16.0); LYMPH # 1.4 10*3/uL (1.3-4.4); LYMPH % 30.7 % (27.0-41.0); MEAN CELL VOLUME 95.6 fl (81.0-99.0); MEAN CORPUSCULAR HGB 30.8 pg (27.0-31.0); MEAN CORPUSCULAR HGB CONC 32.2 g/dl (33.0-37.0); MEAN PLATELET VOLUME 10.2 fl (9.6-12.3); MONO # 0.3 10*3/uL (0.1-1.0); MONO % 7.3 % (3.0-9.0); NEUT # 2.7 10*3/uL (2.3-7.9); NEUT % 60.7 % (47.0-73.0); PLATELET COUNT AUTOMATED 252 10*3/uL (130-400); RED BLOOD COUNT 4.29 10*6/uL (4.10-5.10); RED CELL DISTRI WIDTH 13.8 % (0-14.5); WHITE BLOOD COUNT 4.5 10*3/uL (4.8-10.8)
[2018-05-16 17:36] LABS: ACT PARTIAL THROMBO TIME 27.1 SECONDS (20.8-31.5)
[2018-05-16 17:40] LABS: BILIRUBIN NEGATIVE (NEGATIVE); BLOOD 1+ (NEGATIVE); CLARITY CLEAR (CLEAR); COLOR STRAW (YELLOW); GLUCOSE NEGATIVE (NEGATIVE); KETONE NEGATIVE (NEGATIVE); LEUKO ESTERASE 1+ (NEGATIVE); NITRITE NEGATIVE (NEGATIVE); UROBILINOGEN 0.2 E.U./dl (0.2-1.0)
[2018-05-16 17:41] LABS: ALKALINE PHOSPHATASE 126 U/L (45-117); BUN 14 mg/dl (7-24); CHLORIDE 102 mmol/L (98-107); CREATININE 0.85 mg/dL (0.55-1.02); LIPASE 165 U/L (73-393); POTASSIUM 3.9 mmol/L (3.5-5.1); SGOT/AST 22 IU/L (3-35); SGPT/ALT 21 U/L (12-78); SODIUM 138 mmol/L (136-145); TOTAL PROTEIN 8.3 gm/dL (6.4-8.2); TROPONIN I 0.023 ng/ml (<0.045)
[2018-05-16 17:48] LABS: BACTERIA TRACE; EPITHELIAL CELLS 0-2
[2018-05-16 17:57] VITALS: BP 158/93
[2018-05-16 20:00] VITALS: BP 162/71
[2018-05-16] MEDS ORDERED: COLACE100 MG PO (21:02)
[2018-05-17] VITALS: BP 104/51
[2018-05-17 07:06] LABS: BASO % 0.3 % (0.0-1.0); EOS # 0.1 10*3/uL (0.0-0.4); EOS % 1.9 % (1.0-4.0); LYMPH # 1.2 10*3/uL (1.3-4.4); LYMPH % 36.4 % (27.0-41.0); MEAN CELL VOLUME 96.7 fl (81.0-99.0); MEAN CORPUSCULAR HGB 30.8 pg (27.0-31.0); MEAN CORPUSCULAR HGB CONC 31.9 g/dl (33.0-37.0); MEAN PLATELET VOLUME 10.5 fl (9.6-12.3); MONO # 0.4 10*3/uL (0.1-1.0); MONO % 10.8 % (3.0-9.0); NEUT # 1.6 10*3/uL (2.3-7.9); NEUT % 50.3 % (47.0-73.0); PLATELET COUNT AUTOMATED 199 10*3/uL (130-400); RED CELL DISTRI WIDTH 14.1 % (0-14.5); WHITE BLOOD COUNT 3.2 10*3/uL (4.8-10.8)
[2018-05-17 07:07] LABS: HEMATOCRIT 34.8 % (37.0-47.0); HEMOGLOBIN 11.1 g/dl (12.0-16.0)
[2018-05-17 07:18] LABS: ACT PARTIAL THROMBO TIME 26.8 SECONDS (20.8-31.5); INTERNATIONAL NORM RATIO 1.1 (2.0-3.5)
[2018-05-17 07:33] LABS: BUN 11 mg/dl (7-24); CHLORIDE 108 mmol/L (98-107); CHOLESTEROL 179 mg/dL (<200); CREATININE 0.69 mg/dL (0.55-1.02); PHOSPHOROUS 3.8 mg/dL (2.5-4.9); POTASSIUM 3.9 mmol/L (3.5-5.1); SODIUM 142 mmol/L (136-145); TRIGLYCERIDES 55 mg/dl (<150); VLDL CHOLESTEROL 11 mg/dL (6-40)
[2018-05-17 07:43] LABS: FREE T4 1.31 ng/dl (0.76-1.46); HDL CHOLESTEROL 80 mg/dl (40-60); LDL CHOLESTEROL 88 mg/dL (9-159)
[2018-05-17 08:00] VITALS: BP 134/68
[2018-05-17 10:45] LABS: VITAMIN D, 25-HYDROXY 47.4 ng/mL (30-100)
[2018-05-17 12:00] VITALS: BP 139/67
[2018-05-17 16:00] VITALS: BP 146/73
[2018-05-17 20:00] VITALS: BP 157/87
[2018-05-18] VITALS: BP 143/70
[2018-05-18 06:59] LABS: BASO % 0.3 % (0.0-1.0); EOS # 0.1 10*3/uL (0.0-0.4); EOS % 1.7 % (1.0-4.0); HEMOGLOBIN 10.9 g/dl (12.0-16.0); LYMPH # 1.3 10*3/uL (1.3-4.4); LYMPH % 43.8 % (27.0-41.0); MEAN CELL VOLUME 96.3 fl (81.0-99.0); MEAN CORPUSCULAR HGB 30.9 pg (27.0-31.0); MEAN CORPUSCULAR HGB CONC 32.1 g/dl (33.0-37.0); MEAN PLATELET VOLUME 10.4 fl (9.6-12.3); MONO # 0.3 10*3/uL (0.1-1.0); NEUT # 1.3 10*3/uL (2.3-7.9); NEUT % 45.2 % (47.0-73.0); PLATELET COUNT AUTOMATED 191 10*3/uL (130-400); RED BLOOD COUNT 3.53 10*6/uL (4.10-5.10); RED CELL DISTRI WIDTH 13.9 % (0-14.5); WHITE BLOOD COUNT 2.9 10*3/uL (4.8-10.8)
[2018-05-18 07:07] LABS: BUN 13 mg/dl (7-24); CHLORIDE 107 mmol/L (98-107); CREATININE 0.71 mg/dL (0.55-1.02); POTASSIUM 3.8 mmol/L (3.5-5.1); SODIUM 141 mmol/L (136-145)
[2018-05-18 08:00] VITALS: BP 138/72
[2018-05-18 12:00] VITALS: BP 141/70
[2018-05-18 16:00] VITALS: BP 139/69
[2018-05-18 20:00] VITALS: BP 135/71
[2018-05-19] VITALS: BP 109/47
[2018-05-19 06:34] LABS: BASO % 0.5 % (0.0-1.0); EOS # 0.1 10*3/uL (0.0-0.4); EOS % 1.6 % (1.0-4.0); HEMATOCRIT 34.6 % (37.0-47.0); HEMOGLOBIN 10.8 g/dl (12.0-16.0); LYMPH # 1.4 10*3/uL (1.3-4.4); LYMPH % 38.1 % (27.0-41.0); MEAN CELL VOLUME 96.6 fl (81.0-99.0); MEAN CORPUSCULAR HGB 30.2 pg (27.0-31.0); MEAN CORPUSCULAR HGB CONC 31.2 g/dl (33.0-37.0); MEAN PLATELET VOLUME 10.9 fl (9.6-12.3); MONO # 0.4 10*3/uL (0.1-1.0); MONO % 9.8 % (3.0-9.0); NEUT # 1.9 10*3/uL (2.3-7.9); PLATELET COUNT AUTOMATED 191 10*3/uL (130-400); RED BLOOD COUNT 3.58 10*6/uL (4.10-5.10); RED CELL DISTRI WIDTH 13.7 % (0-14.5); WHITE BLOOD COUNT 3.8 10*3/uL (4.8-10.8)
[2018-05-19 06:42] LABS: BUN 11 mg/dl (7-24); CHLORIDE 107 mmol/L (98-107); CREATININE 0.67 mg/dL (0.55-1.02); POTASSIUM 3.7 mmol/L (3.5-5.1); SODIUM 141 mmol/L (136-145)
[2018-05-19 08:00] VITALS: BP 140/84
[2018-05-19 12:00] VITALS: BP 158/75
[2018-05-19] MEDS ORDERED: CARTIA XT240 MG PO (13:46)
[2018-05-19] MEDS ORDERED: MECLIZINE HCL25 M2 PO (13:50)
== END 2018-05-19 15:39 | disposition home or self-care (01) | DRG 149 ==
LOC: ED 17:00 → EDHOLD 18:26 → 5E 18:26
PROVIDERS: Emergency Medicine; Podiatrist Primary Podiatric Medicine; Student in an Organized Health Care Education/Training Program
PROC: 4B02XSZ Measurement of Cardiac Pacemaker, External Approach (ICD-10-PCS; principal; 2018-05-17)
DX: R42 Dizziness and giddiness (principal); N18.3 Chronic kidney disease, stage 3 (moderate); R26.81 Unsteadiness on feet; R00.1 Bradycardia, unspecified; D72.819 Decreased white blood cell count, unspecified; E87.8 Other disorders of electrolyte and fluid balance, not elsewhere classified; R31.21 Asymptomatic microscopic hematuria; E03.9 Hypothyroidism, unspecified; F41.9 Anxiety disorder, unspecified; G40.909 Epilepsy, unspecified, not intractable, without status epilepticus; Z96.641 Presence of right artificial hip joint; D64.9 Anemia, unspecified; E83.41 Hypermagnesemia; R73.9 Hyperglycemia, unspecified; I95.1 Orthostatic hypotension; I48.2 Chronic atrial fibrillation; Z95.0 Presence of cardiac pacemaker; Z91.81 History of falling; Z86.73 Personal history of transient ischemic attack (TIA), and cerebral infarction without residual deficits; Z80.3 Family history of malignant neoplasm of breast; Z80.0 Family history of malignant neoplasm of digestive organs; Z84.89 Family history of other specified conditions; Z88.1 Allergy status to other antibiotic agents; Z88.8 Allergy status to other drugs, medicaments and biological substances; Z79.899 Other long term (current) drug therapy

== ENCOUNTER → 2018-08-27 | Outpatient (CLI) | payer MEDICARE ==
[~2018-08-27] MED LIST changes: +CARTIA XT240 MG PO; +COLACE100 MG PO; +MECLIZINE HCL25 M2 PO
[2018-08-27 14:44] LABS: BASO % 0.4 % (0.0-1.0); EOS # 0.1 10*3/uL (0.0-0.4); HEMATOCRIT 40.3 % (37.0-47.0); HEMOGLOBIN 12.7 g/dl (12.0-16.0); LYMPH # 1.9 10*3/uL (1.3-4.4); LYMPH % 39.2 % (27.0-41.0); MEAN CELL VOLUME 96.6 fl (81.0-99.0); MEAN CORPUSCULAR HGB 30.5 pg (27.0-31.0); MEAN CORPUSCULAR HGB CONC 31.5 g/dl (33.0-37.0); MONO # 0.4 10*3/uL (0.1-1.0); MONO % 7.7 % (3.0-9.0); NEUT # 2.5 10*3/uL (2.3-7.9); NEUT % 51.5 % (47.0-73.0); PLATELET COUNT AUTOMATED 203 10*3/uL (130-400); RED BLOOD COUNT 4.17 10*6/uL (4.10-5.10); RED CELL DISTRI WIDTH 14.6 % (0-14.5); WHITE BLOOD COUNT 4.9 10*3/uL (4.8-10.8)
[2018-08-27 15:13] LABS: ALBUMIN 3.9 gm/dl (3.1-4.5); ALKALINE PHOSPHATASE 103 U/L (45-117); BILIRUBIN, DIRECT 0.2 mg/dL (0.0-0.2); BUN 23 mg/dl (7-24); CHLORIDE 106 mmol/L (98-107); CREATININE 0.97 mg/dL (0.55-1.02); POTASSIUM 3.8 mmol/L (3.5-5.1); SGOT/AST 26 IU/L (3-35); SGPT/ALT 25 U/L (12-78); SODIUM 142 mmol/L (136-145); THYROXINE (T4) TOTAL 11.9 ug/dl (4.8-13.9); TOTAL PROTEIN 8.1 gm/dL (6.4-8.2)
== END | disposition home or self-care (01) ==
LOC: LAB 14:24
PROVIDERS: Family Medicine
DX: I10 Essential (primary) hypertension (principal); I48.91 Unspecified atrial fibrillation

== ENCOUNTER → 2018-09-22 | Outpatient (CLI) | payer MEDICARE | END | disposition home or self-care (01) | LOC: LAB 12:20 | PROVIDERS: Family Medicine | DX: I48.91 Unspecified atrial fibrillation (principal) ==

== ENCOUNTER → 2018-09-24 | Outpatient (CLI) | payer MEDICARE ==
[2018-09-24 14:51] LABS: INTERNATIONAL NORM RATIO 2.3 (2.0-3.5)
== END | disposition home or self-care (01) ==
LOC: LAB 13:44
PROVIDERS: Internal Medicine Cardiovascular Disease
DX: I48.91 Unspecified atrial fibrillation (principal); Z79.01 Long term (current) use of anticoagulants

== ENCOUNTER → 2018-11-03 | Outpatient (CLI) | payer MEDICARE | END | disposition home or self-care (01) | LOC: LAB 11:57 | PROVIDERS: Internal Medicine Cardiovascular Disease | DX: I48.91 Unspecified atrial fibrillation (principal); Z79.01 Long term (current) use of anticoagulants ==

== ENCOUNTER → 2018-11-05 | Outpatient (CLI) | payer MEDICARE ==
[2018-11-05 12:17] LABS: INTERNATIONAL NORM RATIO 2.2 (2.0-3.5)
== END | disposition home or self-care (01) ==
LOC: LAB 11:24
PROVIDERS: Internal Medicine Cardiovascular Disease
DX: I48.91 Unspecified atrial fibrillation (principal)

== ENCOUNTER → 2018-11-26 | Outpatient (CLI) | payer MEDICARE ==
[2018-11-26 12:21] LABS: INTERNATIONAL NORM RATIO 3.3 (2.0-3.5)
== END | disposition home or self-care (01) ==
LOC: LAB 11:21
PROVIDERS: Internal Medicine Cardiovascular Disease
DX: I48.91 Unspecified atrial fibrillation (principal)

== ENCOUNTER → 2018-12-15 | Outpatient (CLI) | payer MEDICARE ==
[2018-12-15 11:01] LABS: INTERNATIONAL NORM RATIO 2.6 (2.0-3.5)
== END | disposition home or self-care (01) ==
LOC: LAB 09:52
PROVIDERS: Internal Medicine Cardiovascular Disease
DX: I48.91 Unspecified atrial fibrillation (principal)

== ENCOUNTER → 2018-12-28 | Outpatient (CLI) | payer MEDICARE | END | disposition home or self-care (01) | LOC: LAB 14:00 | PROVIDERS: Internal Medicine Cardiovascular Disease | DX: I48.91 Unspecified atrial fibrillation (principal) ==

== ENCOUNTER 2018-12-31 07:51 | Emergency (ER) | payer MEDICARE ==
[~2018-12-31] VITALS: Wt 74.8 kg
--- NOTE | ~2018-12-31 | EKG ---
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
--- NOTE | ~2018-12-31 | EKG ---
[place], [place] ELECTROCARDIOGRAM REPORT NAME: SHER MCWILLIAMS V UNIT #: [id number] ROOM: DOCTOR: EPIPHANY DRAFT REPORT BIRTHDATE: [birth year] 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 Transport Driver: Ronna Ash : 1940 Requested By: MARINO ONTIVEROS Order Number: [id number] Reading MD: Joe Styles MD Measurements Intervals [place] Rate: 81 P: OR: QRS: -40 QRSD: 100 T: -22 QT: 421 QTc: 489 Interpretive Statements Atrial fibrillation Multiple ventricular premature complexes Left axis deviation Borderline low voltage, extremity leads Abnormal R-wave progression, late transition Borderline repolarization abnormality Borderline prolonged QT interval Baseline wander in lead(s) I,aVR Compared to ECG 05/16/2018 17:32:44 Ventricular premature complex(es) now present Myocardial infarct finding no longer present Electronically Signed On 12-31-2018 15:32:41 PDT by Joe Styles MD CM:EKGRPT:ELECTROCARDIOGRAM REPORT [id number] MARINO ZAMORA DRAFT REPORT MARINO ONTIVEROS DO
[2018-12-31 07:52] VITALS: BP 165/92
[2018-12-31 08:21] VITALS: BP 164/99
[2018-12-31 08:29] LABS: BASO % 0.2 % (0.0-1.0); EOS % 0.4 % (1.0-4.0); HEMATOCRIT 41.6 % (37.0-47.0); HEMOGLOBIN 13.3 g/dl (12.0-16.0); LYMPH # 0.9 10*3/uL (1.3-4.4); LYMPH % 17.8 % (27.0-41.0); MEAN CELL VOLUME 95.4 fl (81.0-99.0); MEAN CORPUSCULAR HGB 30.5 pg (27.0-31.0); MEAN PLATELET VOLUME 10.8 fl (9.6-12.3); MONO # 0.2 10*3/uL (0.1-1.0); MONO % 4.4 % (3.0-9.0); PLATELET COUNT AUTOMATED 210 10*3/uL (130-400); RED BLOOD COUNT 4.36 10*6/uL (4.10-5.10); RED CELL DISTRI WIDTH 14.2 % (0-14.5); WHITE BLOOD COUNT 5.2 10*3/uL (4.8-10.8)
[2018-12-31 08:39] LABS: ACT PARTIAL THROMBO TIME 31.6 SECONDS (20.0-32.1); INTERNATIONAL NORM RATIO 2.1 (2.0-3.5)
[2018-12-31 08:48] LABS: ALKALINE PHOSPHATASE 96 U/L (45-117); BUN 20 mg/dl (7-24); CHLORIDE 105 mmol/L (98-107); POTASSIUM 3.8 mmol/L (3.5-5.1); SGOT/AST 23 IU/L (3-35); SGPT/ALT 25 U/L (12-78); SODIUM 137 mmol/L (136-145); TOTAL PROTEIN 7.9 gm/dL (6.4-8.2)
[2018-12-31 08:49] LABS: LIPASE 146 U/L (73-393)
[2018-12-31 08:51] LABS: TROPONIN I < 0.015 ng/ml (<0.045)
[2018-12-31 09:09] LABS: BILIRUBIN NEGATIVE (NEGATIVE); BLOOD NEGATIVE (NEGATIVE); CLARITY SL CLOUDY (CLEAR); COLOR YELLOW (YELLOW); GLUCOSE NEGATIVE (NEGATIVE); KETONE NEGATIVE (NEGATIVE); LEUKO ESTERASE NEGATIVE (NEGATIVE); NITRITE NEGATIVE (NEGATIVE); PH 6.5 (5.0-9.0); SPECIFIC GRAVITY <= 1.005 (1.005-1.030); UROBILINOGEN 0.2 E.U./dl (0.2-1.0)
[2018-12-31 09:19] LABS: BACTERIA TRACE; EPITHELIAL CELLS 0-2; RBC 0-2 rbc/hpf (0-2); WBC 0-2 wbc/hpf (0-5)
[2018-12-31 09:34] VITALS: BP 149/86
--- NOTE | 2018-12-31 09:35 | NUR ---
PT ASSISTED UP TO VOID X2-MAGUI CISNEROS RN
[2018-12-31 10:33] VITALS: BP 126/90
--- NOTE | 2018-12-31 11:17 | NUR ---
PT WANTING TO LEAVE AMA.DR ONTIVEROS AWARE.SHE DOES NOT WANT TO BE ADMITTED.HEP LOCK REMOVED. AT BEDSIDE TO TAKE HER HOME.--MAGUI CISNEROS RN
== END 2018-12-31 11:18 | disposition left against medical advice (07) ==
LOC: ED 07:51 → EDHOLD 10:20 → ED 10:20 → 4E 10:50 → EDHOLD 10:50 → 4E 10:50 → ED 11:18
PROVIDERS: Emergency Medicine
DX: R00.2 Palpitations (principal); R55 Syncope and collapse; R10.9 Unspecified abdominal pain; R19.7 Diarrhea, unspecified; I48.2 Chronic atrial fibrillation; E78.00 Pure hypercholesterolemia, unspecified; E03.9 Hypothyroidism, unspecified; G40.909 Epilepsy, unspecified, not intractable, without status epilepticus; N18.9 Chronic kidney disease, unspecified; Z88.1 Allergy status to other antibiotic agents; Z88.8 Allergy status to other drugs, medicaments and biological substances; Z79.899 Other long term (current) drug therapy; Z86.73 Personal history of transient ischemic attack (TIA), and cerebral infarction without residual deficits

== ENCOUNTER → 2019-03-04 | Outpatient (CLI) | payer MEDICARE ==
[2019-03-04 13:55] LABS: INTERNATIONAL NORM RATIO 2.2 (2.0-3.5)
== END | disposition home or self-care (01) ==
LOC: LAB 12:38
PROVIDERS: Internal Medicine Cardiovascular Disease
DX: I48.91 Unspecified atrial fibrillation (principal)

== ENCOUNTER → 2019-04-05 | Outpatient (CLI) | payer MEDICARE ==
[2019-04-05 13:07] LABS: INTERNATIONAL NORM RATIO 2.3 (2.0-3.5)
== END | disposition home or self-care (01) ==
LOC: LAB 12:06
PROVIDERS: Internal Medicine Cardiovascular Disease
DX: I48.91 Unspecified atrial fibrillation (principal); Z79.01 Long term (current) use of anticoagulants

== ENCOUNTER → 2019-05-03 | Outpatient (CLI) | payer MEDICARE ==
[2019-05-03 15:25] LABS: INTERNATIONAL NORM RATIO 1.8 (2.0-3.5)
== END | disposition home or self-care (01) ==
LOC: LAB 13:27
PROVIDERS: Internal Medicine Cardiovascular Disease
DX: I48.91 Unspecified atrial fibrillation (principal)

== ENCOUNTER → 2019-05-10 | Outpatient (CLI) | payer MEDICARE ==
[2019-05-10 11:31] LABS: INTERNATIONAL NORM RATIO 2.8 (2.0-3.5)
== END | disposition home or self-care (01) ==
LOC: LAB 10:44
PROVIDERS: Internal Medicine Cardiovascular Disease
DX: I48.91 Unspecified atrial fibrillation (principal)

== ENCOUNTER → 2019-05-18 | Outpatient (CLI) | payer MEDICARE ==
[2019-05-18 09:17] LABS: BASO % 0.2 % (0.0-1.0); EOS % 0.5 % (1.0-4.0); HEMATOCRIT 44.2 % (37.0-47.0); HEMOGLOBIN 13.9 g/dl (12.0-16.0); LYMPH # 1.3 10*3/uL (1.3-4.4); LYMPH % 31.6 % (27.0-41.0); MEAN CELL VOLUME 98.4 fl (81.0-99.0); MEAN CORPUSCULAR HGB CONC 31.4 g/dl (33.0-37.0); MEAN PLATELET VOLUME 10.7 fl (9.6-12.3); MONO # 0.3 10*3/uL (0.1-1.0); MONO % 7.8 % (3.0-9.0); NEUT # 2.4 10*3/uL (2.3-7.9); NEUT % 59.9 % (47.0-73.0); PLATELET COUNT AUTOMATED 203 10*3/uL (130-400); RED BLOOD COUNT 4.49 10*6/uL (4.10-5.10); RED CELL DISTRI WIDTH 13.8 % (0-14.5); WHITE BLOOD COUNT 4.1 10*3/uL (4.8-10.8)
[2019-05-18 09:32] LABS: ALBUMIN 4.1 gm/dl (3.1-4.5); ALKALINE PHOSPHATASE 85 U/L (45-117); BILIRUBIN, DIRECT 0.2 mg/dL (0.0-0.2); BUN 21 mg/dl (7-24); CHLORIDE 105 mmol/L (98-107); CHOLESTEROL 261 mg/dL (<200); CREATININE 1.03 mg/dL (0.55-1.02); HDL CHOLESTEROL 119 mg/dl (40-60); LDL CHOLESTEROL 133 mg/dL (9-159); SGOT/AST 33 IU/L (3-35); SGPT/ALT 30 U/L (12-78); SODIUM 140 mmol/L (136-145); THYROXINE (T4) TOTAL 11.7 ug/dl (4.8-13.9); TOTAL PROTEIN 8.2 gm/dL (6.4-8.2); TRIGLYCERIDES 43 mg/dl (<150); VLDL CHOLESTEROL 9 mg/dL (6-40)
== END | disposition home or self-care (01) ==
LOC: LAB 08:46
PROVIDERS: Family Medicine
DX: E03.9 Hypothyroidism, unspecified (principal); I10 Essential (primary) hypertension; E11.9 Type 2 diabetes mellitus without complications

== ENCOUNTER → 2019-05-24 | Outpatient (CLI) | payer MEDICARE ==
[2019-05-24 13:03] LABS: INTERNATIONAL NORM RATIO 2.1 (2.0-3.5)
== END | disposition home or self-care (01) ==
LOC: LAB 12:26
PROVIDERS: Internal Medicine Cardiovascular Disease
DX: I48.91 Unspecified atrial fibrillation (principal)

== ENCOUNTER → 2019-06-10 | Outpatient (CLI) | payer MEDICARE ==
[2019-06-10 15:00] LABS: INTERNATIONAL NORM RATIO 2.9 (2.0-3.5)
== END | disposition home or self-care (01) ==
LOC: LAB 13:28
PROVIDERS: Internal Medicine Cardiovascular Disease
DX: I48.91 Unspecified atrial fibrillation (principal)

== ENCOUNTER → 2019-07-01 | Outpatient (CLI) | payer MEDICARE ==
[2019-07-01 15:31] LABS: INTERNATIONAL NORM RATIO 2.5 (2.0-3.5)
== END | disposition home or self-care (01) ==
LOC: LAB 14:41
PROVIDERS: Internal Medicine Cardiovascular Disease
DX: I48.91 Unspecified atrial fibrillation (principal)

== ENCOUNTER 2019-08-02 15:39 | Emergency (ER) | payer MEDICARE ==
[~2019-08-02] VITALS: Ht 177.8 cm; Wt 72.6 kg
[2019-08-02 15:52] VITALS: BP 160/111
[2019-08-02 17:18] LABS: BILIRUBIN NEGATIVE (NEGATIVE); CLARITY CLEAR (CLEAR); COLOR YELLOW (YELLOW); GLUCOSE NEGATIVE (NEGATIVE)
[2019-08-02 17:19] LABS: BLOOD NEGATIVE (NEGATIVE); KETONE NEGATIVE (NEGATIVE); LEUKO ESTERASE NEGATIVE (NEGATIVE); NITRITE POSITIVE (NEGATIVE); UROBILINOGEN 0.2 E.U./dl (0.2-1.0)
[2019-08-02 17:19] LABS: BASO % 0.3 % (0.0-1.0); EOS % 0.3 % (1.0-4.0); HEMATOCRIT 42.3 % (37.0-47.0); HEMOGLOBIN 13.6 g/dl (12.0-16.0); LYMPH # 1.3 10*3/uL (1.3-4.4); LYMPH % 21.5 % (27.0-41.0); MEAN CELL VOLUME 97.7 fl (81.0-99.0); MEAN CORPUSCULAR HGB 31.4 pg (27.0-31.0); MEAN CORPUSCULAR HGB CONC 32.2 g/dl (33.0-37.0); MEAN PLATELET VOLUME 10.7 fl (9.6-12.3); MONO # 0.4 10*3/uL (0.1-1.0); MONO % 6.8 % (3.0-9.0); NEUT # 4.4 10*3/uL (2.3-7.9); NEUT % 70.9 % (47.0-73.0); PLATELET COUNT AUTOMATED 220 10*3/uL (130-400); RED BLOOD COUNT 4.33 10*6/uL (4.10-5.10); WHITE BLOOD COUNT 6.2 10*3/uL (4.8-10.8)
[2019-08-02 17:27] LABS: BACTERIA TRACE; EPITHELIAL CELLS 0-2; WBC 0-2 wbc/hpf (0-5)
[2019-08-02 17:29] LABS: ACT PARTIAL THROMBO TIME 34.2 SECONDS (20.0-32.1); INTERNATIONAL NORM RATIO 2.6 (2.0-3.5)
[2019-08-02 17:35] LABS: ALKALINE PHOSPHATASE 73 U/L (45-117); BUN 19 mg/dl (7-24); CHLORIDE 104 mmol/L (98-107); CREATININE 1.01 mg/dL (0.55-1.02); LIPASE 127 U/L (73-393); SGOT/AST 34 IU/L (3-35); SGPT/ALT 34 U/L (12-78); SODIUM 139 mmol/L (136-145); TOTAL PROTEIN 7.9 gm/dL (6.4-8.2); TROPONIN I 0.021 ng/ml (<0.045)
[2019-08-02] MEDS ORDERED: CEPHALEXIN500 M1 PO (18:58)
== END 2019-08-02 19:53 | disposition home or self-care (01) ==
LOC: ED 15:39
PROVIDERS: Nurse Practitioner Family
DX: S09.90XA Unspecified injury of head, initial encounter (principal); S40.011A Contusion of right shoulder, initial encounter; N39.0 Urinary tract infection, site not specified; M54.2 Cervicalgia; M25.552 Pain in left hip; M25.521 Pain in right elbow; M54.6 Pain in thoracic spine; I48.91 Unspecified atrial fibrillation; I10 Essential (primary) hypertension; Z96.641 Presence of right artificial hip joint; Z88.1 Allergy status to other antibiotic agents; Z88.8 Allergy status to other drugs, medicaments and biological substances; Z95.0 Presence of cardiac pacemaker; Z86.73 Personal history of transient ischemic attack (TIA), and cerebral infarction without residual deficits; W19.XXXA Unspecified fall, initial encounter; Y93.89 Activity, other specified; Y92.89 Other specified places as the place of occurrence of the external cause; Y99.8 Other external cause status

== ENCOUNTER → 2019-08-31 | Outpatient (CLI) | payer MEDICARE ==
[~2019-08-31] MED LIST changes: +CEPHALEXIN500 M1 PO
[2019-08-31 12:21] LABS: INTERNATIONAL NORM RATIO 3.2 (2.0-3.5)
== END | disposition home or self-care (01) ==
LOC: LAB 11:13
PROVIDERS: Internal Medicine Cardiovascular Disease
DX: Z79.01 Long term (current) use of anticoagulants (principal)

== ENCOUNTER 2019-09-15 10:23 | Inpatient (IN) | payer MEDICARE ==
[~2019-09-15] VITALS: Ht 177.8 cm; Wt 70.9 kg
[2019-09-15 10:30] VITALS: BP 137/90
[2019-09-15 11:11] LABS: BASO % 0.2 % (0.0-1.0); HEMATOCRIT 42.3 % (37.0-47.0); LYMPH % 20.4 % (27.0-41.0); MEAN CELL VOLUME 96.6 fl (81.0-99.0); MEAN CORPUSCULAR HGB CONC 33.1 g/dl (33.0-37.0); MEAN PLATELET VOLUME 10.6 fl (9.6-12.3); MONO # 0.3 10*3/uL (0.1-1.0); MONO % 6.4 % (3.0-9.0); NEUT # 3.5 10*3/uL (2.3-7.9); NEUT % 72.8 % (47.0-73.0); PLATELET COUNT AUTOMATED 171 10*3/uL (130-400); RED BLOOD COUNT 4.38 10*6/uL (4.10-5.10); RED CELL DISTRI WIDTH 13.3 % (0-14.5); WHITE BLOOD COUNT 4.8 10*3/uL (4.8-10.8)
[2019-09-15 11:26] LABS: ACT PARTIAL THROMBO TIME 36.9 SECONDS (20.0-32.1)
[2019-09-15 11:30] LABS: BILIRUBIN NEGATIVE (NEGATIVE); BLOOD NEGATIVE (NEGATIVE); CLARITY CLEAR (CLEAR); COLOR YELLOW (YELLOW); GLUCOSE NEGATIVE (NEGATIVE); KETONE NEGATIVE (NEGATIVE); LEUKO ESTERASE NEGATIVE (NEGATIVE); NITRITE NEGATIVE (NEGATIVE); PH 7.5 (5.0-9.0); SPECIFIC GRAVITY 1.005 (1.005-1.030); UROBILINOGEN 0.2 E.U./dl (0.2-1.0)
[2019-09-15 11:31] LABS: ALBUMIN 3.7 gm/dl (3.1-4.5); CREATININE 1.07 mg/dL (0.55-1.02); POTASSIUM 4.1 mmol/L (3.5-5.1); TOTAL PROTEIN 7.7 gm/dL (6.4-8.2); TROPONIN I 0.039 ng/ml (<0.045)
[2019-09-15 11:35] VITALS: BP 152/83
[2019-09-15 11:36] LABS: LIPASE 193 U/L (73-393)
[2019-09-15 11:43] LABS: RBC 0-2 rbc/hpf (0-2); WBC 0-2 wbc/hpf (0-5)
[2019-09-15 12:15] VITALS: BP 100/60
[2019-09-15 14:10] VITALS: BP 149/77
[2019-09-15] MEDS ORDERED: COUMADIN5 M2 PO (15:15)
[2019-09-15] MEDS ORDERED: WARFARIN SODIUM6 MG PO (15:16)
[2019-09-15 16:00] VITALS: BP 130/74
[2019-09-15 20:00] VITALS: BP 162/82
[2019-09-16] VITALS: BP 134/98
[2019-09-16 06:28] LABS: BASO % 0.2 % (0.0-1.0); EOS # 0.1 10*3/uL (0.0-0.4); EOS % 1.2 % (1.0-4.0); HEMATOCRIT 40.7 % (37.0-47.0); LYMPH # 1.4 10*3/uL (1.3-4.4); LYMPH % 34.8 % (27.0-41.0); MEAN CELL VOLUME 98.3 fl (81.0-99.0); MEAN CORPUSCULAR HGB 31.4 pg (27.0-31.0); MEAN CORPUSCULAR HGB CONC 31.9 g/dl (33.0-37.0); MEAN PLATELET VOLUME 10.7 fl (9.6-12.3); MONO # 0.3 10*3/uL (0.1-1.0); MONO % 8.4 % (3.0-9.0); NEUT # 2.2 10*3/uL (2.3-7.9); NEUT % 55.2 % (47.0-73.0); PLATELET COUNT AUTOMATED 162 10*3/uL (130-400); RED BLOOD COUNT 4.14 10*6/uL (4.10-5.10); RED CELL DISTRI WIDTH 13.6 % (0-14.5); WHITE BLOOD COUNT 4.1 10*3/uL (4.8-10.8)
[2019-09-16 07:00] LABS: ALBUMIN 3.3 gm/dl (3.1-4.5); ALKALINE PHOSPHATASE 55 U/L (45-117); BUN 18 mg/dl (7-24); CHLORIDE 108 mmol/L (98-107); CHOLESTEROL 208 mg/dL (<200); CREATININE 0.91 mg/dL (0.55-1.02); HDL CHOLESTEROL 101 mg/dl (40-60); LDL CHOLESTEROL 100 mg/dL (9-159); POTASSIUM 3.9 mmol/L (3.5-5.1); SGOT/AST 20 IU/L (3-35); SGPT/ALT 27 U/L (12-78); SODIUM 141 mmol/L (136-145); TOTAL PROTEIN 6.7 gm/dL (6.4-8.2); TRIGLYCERIDES 36 mg/dl (<150); VLDL CHOLESTEROL 7 mg/dL (6-40)
[2019-09-16 08:00] VITALS: BP 178/80
[2019-09-16 12:00] VITALS: BP 142/66
[2019-09-16] MEDS ORDERED: METOPROLOL SUCC25 M2 PO (15:35)
== END 2019-09-16 15:46 | disposition home or self-care (01) | DRG 206 ==
LOC: ED 10:23 → EDHOLD 13:12 → 4E 13:12
PROVIDERS: Emergency Medicine; Student in an Organized Health Care Education/Training Program; ADMIT Family Medicine
PROC: 4A02XM4 Measurement of Cardiac Total Activity, External Approach (ICD-10-PCS; principal; 2019-09-16)
PROC: 3E073KZ Introduction of Other Diagnostic Substance into Coronary Artery, Percutaneous Approach (ICD-10-PCS; principal; 2019-09-16)
DX: M94.0 Chondrocostal junction syndrome [Tietze] (principal); I48.21 Permanent atrial fibrillation; I50.32 Chronic diastolic (congestive) heart failure; I13.0 Hypertensive heart and chronic kidney disease with heart failure and stage 1 through stage 4 chronic kidney disease, or unspecified chronic kidney disease; I38 Endocarditis, valve unspecified; I49.3 Ventricular premature depolarization; R73.9 Hyperglycemia, unspecified; R26.2 Difficulty in walking, not elsewhere classified; E78.00 Pure hypercholesterolemia, unspecified; F41.9 Anxiety disorder, unspecified; E03.9 Hypothyroidism, unspecified; N18.3 Chronic kidney disease, stage 3 (moderate); R73.03 Prediabetes; E87.8 Other disorders of electrolyte and fluid balance, not elsewhere classified; G40.909 Epilepsy, unspecified, not intractable, without status epilepticus; Z96.641 Presence of right artificial hip joint; Z86.73 Personal history of transient ischemic attack (TIA), and cerebral infarction without residual deficits; Z95.0 Presence of cardiac pacemaker; Z98.49 Cataract extraction status, unspecified eye; Z90.49 Acquired absence of other specified parts of digestive tract; Z80.3 Family history of malignant neoplasm of breast; Z80.0 Family history of malignant neoplasm of digestive organs; Z83.2 Family history of diseases of the blood and blood-forming organs and certain disorders involving the immune mechanism; Z79.01 Long term (current) use of anticoagulants; Z79.899 Other long term (current) drug therapy; Z88.1 Allergy status to other antibiotic agents; Z88.8 Allergy status to other drugs, medicaments and biological substances

== ENCOUNTER → 2019-09-27 | Outpatient (CLI) | payer MEDICARE ==
[~2019-09-27] MED LIST changes: +METOPROLOL SUCC25 M2 PO; +WARFARIN SODIUM6 MG PO
[2019-09-27 14:39] LABS: INTERNATIONAL NORM RATIO 5.2 (2.0-3.5)
== END | disposition home or self-care (01) ==
LOC: LAB 13:54
PROVIDERS: Family Medicine
DX: Z79.01 Long term (current) use of anticoagulants (principal)

== ENCOUNTER → 2019-10-03 | Outpatient (CLI) | payer MEDICARE ==
[2019-10-03 12:35] LABS: INTERNATIONAL NORM RATIO 1.1 (2.0-3.5)
== END | disposition home or self-care (01) ==
LOC: LAB 11:44
PROVIDERS: Internal Medicine Cardiovascular Disease
DX: I48.91 Unspecified atrial fibrillation (principal)

== ENCOUNTER → 2019-10-10 | Outpatient (CLI) | payer MEDICARE | END | disposition home or self-care (01) | LOC: LAB 12:24 | PROVIDERS: Internal Medicine Cardiovascular Disease | DX: I48.91 Unspecified atrial fibrillation (principal); Z79.01 Long term (current) use of anticoagulants ==

== ENCOUNTER 2019-10-22 21:10 | Inpatient (IN) | payer MEDICARE ==
[~2019-10-22] VITALS: Ht 177.8 cm; Wt 84.1 kg
[2019-10-22 21:19] VITALS: BP 140/89
[2019-10-22 22:08] LABS: BASO % 0.2 % (0.0-1.0); EOS % 0.4 % (1.0-4.0); HEMATOCRIT 40.8 % (37.0-47.0); LYMPH # 1.1 10*3/uL (1.3-4.4); LYMPH % 23.5 % (27.0-41.0); MEAN CELL VOLUME 98.1 fl (81.0-99.0); MEAN CORPUSCULAR HGB 31.5 pg (27.0-31.0); MEAN CORPUSCULAR HGB CONC 32.1 g/dl (33.0-37.0); MEAN PLATELET VOLUME 10.1 fl (9.6-12.3); MONO # 0.5 10*3/uL (0.1-1.0); MONO % 10.2 % (3.0-9.0); NEUT % 65.5 % (47.0-73.0); PLATELET COUNT AUTOMATED 203 10*3/uL (130-400); RED BLOOD COUNT 4.16 10*6/uL (4.10-5.10); RED CELL DISTRI WIDTH 13.5 % (0-14.5); WHITE BLOOD COUNT 4.6 10*3/uL (4.8-10.8)
[2019-10-22 22:24] LABS: ALBUMIN 3.7 gm/dl (3.1-4.5); ALKALINE PHOSPHATASE 62 U/L (45-117); BUN 22 mg/dl (7-24); CHLORIDE 103 mmol/L (98-107); CREATININE 1.29 mg/dL (0.55-1.02); LIPASE 220 U/L (73-393); SGOT/AST 24 IU/L (3-35); SGPT/ALT 29 U/L (12-78); SODIUM 137 mmol/L (136-145); TOTAL PROTEIN 7.4 gm/dL (6.4-8.2); TROPONIN I 0.021 ng/ml (<0.045)
[2019-10-22 22:25] LABS: INTERNATIONAL NORM RATIO 3.4 (2.0-3.5)
[2019-10-22 22:33] LABS: CLARITY CLEAR (CLEAR); COLOR STRAW (YELLOW)
[2019-10-22 22:34] LABS: BILIRUBIN NEGATIVE (NEGATIVE); BLOOD NEGATIVE (NEGATIVE); GLUCOSE NEGATIVE (NEGATIVE); KETONE NEGATIVE (NEGATIVE); NITRITE NEGATIVE (NEGATIVE); SPECIFIC GRAVITY 1.005 (1.005-1.030); UROBILINOGEN 0.2 E.U./dl (0.2-1.0)
[2019-10-22 22:37] LABS: LEUKO ESTERASE TRACE (NEGATIVE)
[2019-10-22 22:39] LABS: BACTERIA TRACE; EPITHELIAL CELLS 0-2; RBC 0-2 rbc/hpf (0-2)
[2019-10-22 23:35] VITALS: BP 150/82
[2019-10-23] VITALS (7 sets, daily range): BP systolic 136–166; BP diastolic 54–90
--- NOTE | 2019-10-23 01:21 | NUR ---
CONTACTED PT TO INFORM HIM THAT PT WILL BE ADMITTED. [phone] JAIRON. HE WILL UPDATE DAUGHTER LILY [phone].
--- NOTE | 2019-10-23 03:15 | NUR ---
PATIENT UNABLE TO VERIFY ALL MEDICATIONS. WILL PASS ON TO DAY SHIFT NURSE TO CONTACT [facility] IN THE AM FOR A MED LIST.
--- NOTE | 2019-10-23 03:15 | NUR ---
A 79, admitted to , under the services of NORMA Banerjee DO with a diagnosis of SOB, NAUSEA. Chief complaint is HEADACHE. Patient arrived via stretcher from ER. Monitor applied. Initial assessment completed. Vital signs taken and recorded. NORMA BANERJEE DO notified of admission to the unit. Orders received. See assessment for past medical history, medications and allergies. Patient and/or family oriented to unit. [address] visitation policy reviewed. Clothing/patient valuable form completed. TEOFILO PEREA
--- NOTE | 2019-10-23 03:15 | NUR ---
A 79, admitted to , under the services of NORMA Banerjee DO with a diagnosis of AFIV RVR. Chief complaint is SOB, HEADACHE. Patient arrived via stretcher from ER. Monitor applied. Initial assessment completed. Vital signs taken and recorded. NORMA BANERJEE DO notified of admission to the unit. Orders received. See assessment for past medical history, medications and allergies. Patient and/or family oriented to unit. [address] visitation policy reviewed. Clothing/patient valuable form completed. TEOFILO PEREA
--- NOTE | 2019-10-23 06:41 | NUR ---
PATIENT MEDICATED WITH PRN TYLENOL FOR CO A HEADACHE. DAY SHIFT NURSE TO REASSESS EFFECTIVENESS.
[2019-10-23 10:21] LABS: CHLORIDE 106 mmol/L (98-107); CREATININE 0.93 mg/dL (0.55-1.02); POTASSIUM 3.7 mmol/L (3.5-5.1); SODIUM 139 mmol/L (136-145)
[2019-10-23 10:25] LABS: BUN 12 mg/dl (7-24)
--- NOTE | 2019-10-23 20:14 | NUR ---
SPOKE WITH DR GONZÁLES REGARDING ELEVATED BLOOD PRESSURE. ORDER TAKEN
--- NOTE | 2019-10-23 20:42 | NUR ---
MEDICATED WITH PRN ZOFRAN WITH NAUSEA AND ONE TIME HYDRALAZINE PER ORDER
[2019-10-24] VITALS: BP 144/75
--- NOTE | 2019-10-24 | NUR ---
SLEEPING, AWAKENS EASILY. RESPIRATIONS EASY. VSS. CALL LIGHT WITHIN REACH. NO VOICED COMPLAINTS. BED ALARM MAINTAINED FOR SAFETY
--- NOTE | 2019-10-24 00:07 | NUR ---
24 HR chart check completed.
--- NOTE | 2019-10-24 06:00 | NUR ---
SLEPT THROUGHOUT NIGHT WITH NO DISTRESS NOTED. RESPIRATIONS EASY. CALL LIGHT WITHIN REACH. NO VOICED COMPLAINTS THIS SHIFT. BED ALARM MAINTAINED FOR SAFETY
[2019-10-24 06:22] LABS: BASO % 0.4 % (0.0-1.0); EOS % 0.9 % (1.0-4.0); HEMATOCRIT 42.8 % (37.0-47.0); LYMPH # 1.3 10*3/uL (1.3-4.4); LYMPH % 29.2 % (27.0-41.0); MEAN CELL VOLUME 99.1 fl (81.0-99.0); MEAN CORPUSCULAR HGB 31.7 pg (27.0-31.0); MEAN PLATELET VOLUME 10.1 fl (9.6-12.3); MONO # 0.4 10*3/uL (0.1-1.0); MONO % 9.2 % (3.0-9.0); NEUT # 2.8 10*3/uL (2.3-7.9); NEUT % 60.1 % (47.0-73.0); PLATELET COUNT AUTOMATED 191 10*3/uL (130-400); RED BLOOD COUNT 4.32 10*6/uL (4.10-5.10); RED CELL DISTRI WIDTH 13.6 % (0-14.5); WHITE BLOOD COUNT 4.6 10*3/uL (4.8-10.8)
[2019-10-24 06:35] LABS: BUN 13 mg/dl (7-24); CHLORIDE 107 mmol/L (98-107); CHOLESTEROL 235 mg/dL (<200); CREATININE 0.83 mg/dL (0.55-1.02); HDL CHOLESTEROL 109 mg/dl (40-60); LDL CHOLESTEROL 115 mg/dL (9-159); POTASSIUM 3.8 mmol/L (3.5-5.1); SODIUM 139 mmol/L (136-145); TRIGLYCERIDES 53 mg/dl (<150); VLDL CHOLESTEROL 11 mg/dL (6-40)
[2019-10-24 07:50] LABS: VITAMIN D, 25-HYDROXY 48.8 ng/mL (30-100)
--- NOTE | 2019-10-24 08:45 | NUR ---
PT COMPLAINS OF NAUSEA. PRN ZOFRAN ADMINSTERED AT THIS TIME. WILL CONTINUE TO MONITOR.
--- NOTE | 2019-10-24 09:30 | NUR ---
Cytologist in to talk to patient. Patient states lives at home with . There are no steps in the home. Physician: fady caldwell Pharmacy: [facility] Home health services: none Patient's level of ADLs: MINIMAL ASSIST Patient has working utilities: all working DME: walker Follow-up physician's appointment after d/c: willbe made by hospitalist nurse director upon discharged Does patient want to access PORTAL?: no Discharge plan discussed with patient, she lives at home with , she will using a walker for ambulation and is independent in adls, she states she will return home when medically stable and denies any home needs, case management will follow. JAMES KAUFMAN
--- NOTE | 2019-10-24 10:00 | NUR ---
PT STATES RELIEF FROM NAUSEA. PRN ZOFRAN CONSIDERED EFFECTIVE.
[2019-10-24 12:00] VITALS: BP 128/81
--- NOTE | 2019-10-24 15:55 | NUR ---
PT UP IN CHAIR. COMPLAINS OF 1 EPISODE OF DIARRHEA. WILL COTINUE TO MONITOR BOWEL MOVEMENTS. DENIES PAIN. PT IS ANXIOUS. RESPIRATIONS ARE EASY AND REGULAR. NO DISTRESS NOTED. CHAIR IN LOCKED POSITION, CALL LIGHT WITHIN REACH.
[2019-10-24 16:00] VITALS: BP 121/62
[2019-10-24 20:00] VITALS: BP 125/62
--- NOTE | 2019-10-24 20:00 | NUR ---
24 HR chart check completed.
--- NOTE | 2019-10-24 20:00 | NUR ---
RESTING IN BED WITH NO DISTRESS NOTED. RESPIRATIONS EASY. LUNGS DIMINISHED, CLEAR. PULSE OX 100% RA. DRY COUGH. TRACE BLE EDEMA. CALL LIGHT WITHIN REACH. NO VOICED COMPLAINTS. BED ALARM MAINTAINED FOR SAFETY
--- NOTE | 2019-10-24 20:37 | NUR ---
24 HR chart check completed.
[2019-10-25] VITALS: BP 120/60
--- NOTE | 2019-10-25 | NUR ---
SLEEPING. NO DISTRESS NOTED. RESPIRATIONS EASY. VSS. CALL LIGHT WITHIN REACH. BED ALARM MAINTAINED
--- NOTE | 2019-10-25 01:52 | NUR ---
UPON AWAKENING FOR BR, PATIENT C/O NAUSEA. MEDICATED WITH ZOFRAN IV PER PRN ORDER. WILL MONITOR FOR EFFECTIVENESS
--- NOTE | 2019-10-25 03:00 | NUR ---
EARLIER MEDS APPEAR EFFECTIVE. SLEEPING. RESPIRATIONS EASY.
--- NOTE | 2019-10-25 06:00 | NUR ---
RESTING WITH NO ACUTE DISTRESS NOTED. RESPIRATIONS EASY. CALL LIGHT WITHIN REACH. NO VOICED COMPLAINTS
[2019-10-25 07:10] LABS: INTERNATIONAL NORM RATIO 3.3 (2.0-3.5)
[2019-10-25] MEDS ORDERED: QUESTRAN LIGHT4 GM PO (07:36)
[2019-10-25] MEDS ORDERED: ZOFRAN4 MG PO (07:36)
[2019-10-25] MEDS ORDERED: XARELTO20 M1 PO (07:36)
[2019-10-25 08:00] VITALS: BP 140/82
--- NOTE | 2019-10-25 08:24 | NUR ---
PT RESTING IN BED, NO DISTRESS NOTED. WILL MONITOR
--- NOTE | 2019-10-25 09:00 | NUR ---
case management visits with patient, she states she will return home possibly today and would like [facility], case management contacted [facility], spoke to intake nurse, gave patient's information, [facility] will see patient starting tomorrow
--- NOTE | 2019-10-25 09:00 | NUR ---
Physical Therapy evaluation completed on the fourth floor with full evaluation to follow. Recommend physical therapy per plan of care and home with with full HH services upon discharge. Thank you for this referral. Cadence Up PT
--- NOTE | 2019-10-25 09:00 | NUR ---
Occupational Therapy evaluation completed on four with full evaluation to follow. Recommend occupational therapy per plan of care and home with HH SN, OT, and PT with continued family assist upon discharge. Thank you for this referral. Fariba Piedra OTR/L
[2019-10-25] MEDS ORDERED: MECLIZINE HCL25 M2 PO (10:48)
[2019-10-25] MEDS ORDERED: GOOD NEIGHBOR M25 MG PO (10:49)
[2019-10-25 12:00] VITALS: BP 126/62
--- NOTE | 2019-10-25 14:28 | NUR ---
Discharge instructions reviewed with patient/family. Patient receptive and verbalizes understanding. Follow-up care arranged. Written instructions given to patient/family. JUAN KOROMA
== END 2019-10-25 14:28 | disposition home health service (06) | DRG 683 ==
LOC: ED 21:10 → 4E 10-23 02:59 → EDHOLD 10-23 02:59 → 4E 10-23 03:36
PROVIDERS: Emergency Medicine Emergency Medical Services; Internal Medicine; Registered Nurse; Student in an Organized Health Care Education/Training Program; ADMIT Internal Medicine
DX: N17.0 Acute kidney failure with tubular necrosis (principal); D68.69 Other thrombophilia; I48.20 Chronic atrial fibrillation, unspecified; E44.1 Mild protein-calorie malnutrition; G40.909 Epilepsy, unspecified, not intractable, without status epilepticus; E78.00 Pure hypercholesterolemia, unspecified; E03.9 Hypothyroidism, unspecified; F41.9 Anxiety disorder, unspecified; N18.3 Chronic kidney disease, stage 3 (moderate); R73.03 Prediabetes; D72.810 Lymphocytopenia; I12.9 Hypertensive chronic kidney disease with stage 1 through stage 4 chronic kidney disease, or unspecified chronic kidney disease; R54 Age-related physical debility; R11.0 Nausea; Z96.641 Presence of right artificial hip joint; Z90.49 Acquired absence of other specified parts of digestive tract; Z80.3 Family history of malignant neoplasm of breast; Z80.0 Family history of malignant neoplasm of digestive organs; Z79.899 Other long term (current) drug therapy; Z79.01 Long term (current) use of anticoagulants; I69.30 Unspecified sequelae of cerebral infarction; Z88.1 Allergy status to other antibiotic agents; Z88.8 Allergy status to other drugs, medicaments and biological substances; Z98.49 Cataract extraction status, unspecified eye; Z95.0 Presence of cardiac pacemaker; Z68.26 Body mass index [BMI] 26.0-26.9, adult

== ENCOUNTER → 2020-01-20 | Outpatient (CLI) | payer MEDICARE ==
[~2020-01-20] MED LIST changes: +GOOD NEIGHBOR M25 MG PO; +QUESTRAN LIGHT4 GM PO; +XARELTO20 M1 PO
[2020-01-20 15:15] LABS: BASO % 0.4 % (0.0-1.0); EOS % 0.6 % (1.0-4.0); HEMATOCRIT 41.7 % (37.0-47.0); LYMPH # 1.7 10*3/uL (1.3-4.4); MEAN CELL VOLUME 98.6 fl (81.0-99.0); MEAN CORPUSCULAR HGB 30.7 pg (27.0-31.0); MEAN CORPUSCULAR HGB CONC 31.2 g/dl (33.0-37.0); MEAN PLATELET VOLUME 10.6 fl (9.6-12.3); MONO # 0.5 10*3/uL (0.1-1.0); MONO % 6.9 % (3.0-9.0); NEUT # 4.9 10*3/uL (2.3-7.9); NEUT % 67.8 % (47.0-73.0); PLATELET COUNT AUTOMATED 197 10*3/uL (130-400); RED BLOOD COUNT 4.23 10*6/uL (4.10-5.10); RED CELL DISTRI WIDTH 12.7 % (0-14.5); WHITE BLOOD COUNT 7.2 10*3/uL (4.8-10.8)
[2020-01-20 15:29] LABS: ALBUMIN 4.3 gm/dl (3.1-4.5); BILIRUBIN, DIRECT 0.2 mg/dL (0.0-0.2); CREATININE 1.17 mg/dL (0.55-1.02); POTASSIUM 3.9 mmol/L (3.5-5.1); TOTAL PROTEIN 8.3 gm/dL (6.4-8.2)
== END | disposition home or self-care (01) ==
LOC: LAB 14:34
PROVIDERS: Family Medicine
DX: E78.00 Pure hypercholesterolemia, unspecified (principal)

== ENCOUNTER → 2020-04-23 | Outpatient (CLI) | payer MEDICARE ==
[2020-04-23 12:28] LABS: BASO % 0.3 % (0.0-1.0); EOS % 0.8 % (1.0-4.0); HEMATOCRIT 33.6 % (37.0-47.0); LYMPH # 1.3 10*3/uL (1.3-4.4); LYMPH % 31.9 % (27.0-41.0); MEAN CELL VOLUME 96.8 fl (81.0-99.0); MEAN CORPUSCULAR HGB 30.8 pg (27.0-31.0); MEAN CORPUSCULAR HGB CONC 31.8 g/dl (33.0-37.0); MEAN PLATELET VOLUME 10.2 fl (9.6-12.3); MONO # 0.3 10*3/uL (0.1-1.0); MONO % 7.4 % (3.0-9.0); NEUT # 2.3 10*3/uL (2.3-7.9); NEUT % 59.3 % (47.0-73.0); PLATELET COUNT AUTOMATED 212 10*3/uL (130-400); RED BLOOD COUNT 3.47 10*6/uL (4.10-5.10); RED CELL DISTRI WIDTH 14.1 % (0-14.5); WHITE BLOOD COUNT 3.9 10*3/uL (4.8-10.8)
[2020-04-23 12:57] LABS: ALBUMIN 3.6 gm/dl (3.1-4.5); BILIRUBIN, DIRECT 0.1 mg/dL (0.0-0.2)
[2020-04-23 12:58] LABS: CREATININE 1.19 mg/dL (0.55-1.02); TOTAL PROTEIN 7.5 gm/dL (6.4-8.2)
== END | disposition home or self-care (01) ==
LOC: LAB 11:43
PROVIDERS: ATTEND Family Medicine
DX: I10 Essential (primary) hypertension (principal); R73.9 Hyperglycemia, unspecified

== ENCOUNTER 2020-05-07 17:17 | Inpatient (IN) | payer MEDICARE ==
[~2020-05-07] VITALS: Ht 177.8 cm; Wt 76.2 kg
[2020-05-07 17:33] VITALS: BP 130/56
[2020-05-07 18:54] LABS: BILIRUBIN Negative (Negative); BLOOD Negative (Negative); CLARITY Clear (Clear); COLOR Yellow (Yellow); GLUCOSE Negative (Negative); KETONE Negative (Negative); LEUKO ESTERASE Trace (Negative); NITRITE Negative (Negative); SPECIFIC GRAVITY <= 1.005 (1.001-1.030); UROBILINOGEN 0.2 E.U./dl (0.0-1.0)
[2020-05-07 19:03] LABS: BACTERIA TRACE; EPITHELIAL CELLS 0-2; RBC 0-2 rbc/hpf (0-2)
[2020-05-07 19:04] LABS: BASO % 0.3 % (0.0-1.0); EOS # 0.1 10*3/uL (0.0-0.4); EOS % 1.1 % (1.0-4.0); HEMATOCRIT 29.5 % (37.0-47.0); LYMPH # 1.5 10*3/uL (1.3-4.4); LYMPH % 24.4 % (27.0-41.0); MEAN CORPUSCULAR HGB 30.1 pg (27.0-31.0); MEAN CORPUSCULAR HGB CONC 29.8 g/dl (33.0-37.0); MEAN PLATELET VOLUME 9.9 fl (9.6-12.3); MONO # 0.6 10*3/uL (0.1-1.0); MONO % 9.5 % (3.0-9.0); NEUT # 4.1 10*3/uL (2.3-7.9); NEUT % 64.5 % (47.0-73.0); PLATELET COUNT AUTOMATED 238 10*3/uL (130-400); RED BLOOD COUNT 2.92 10*6/uL (4.10-5.10); RED CELL DISTRI WIDTH 15.3 % (0-14.5); WHITE BLOOD COUNT 6.3 10*3/uL (4.8-10.8)
[2020-05-07 19:20] LABS: ALBUMIN 3.8 gm/dl (3.1-4.5); ALKALINE PHOSPHATASE 70 U/L (45-117); BUN 31 mg/dl (7-24); CHLORIDE 107 mmol/L (98-107); CREATININE 0.97 mg/dL (0.55-1.02); IRON 31 ug/dL (50-170); SGOT/AST 20 IU/L (3-35); SGPT/ALT 26 U/L (12-78); SODIUM 141 mmol/L (136-145); TOTAL PROTEIN 7.2 gm/dL (6.4-8.2)
--- NOTE | 2020-05-07 19:23 | NUR ---
RECTAL DONE. POSITIVE FOR OCCULT BLOOD.
--- NOTE | 2020-05-07 19:34 | NUR ---
IV FLUIDS STARTED.
[2020-05-07 21:40] LABS: ACT PARTIAL THROMBO TIME 23.9 SECONDS (20.0-32.1)
[2020-05-08] VITALS (8 sets, daily range): BP systolic 111–147; BP diastolic 47–95
--- NOTE | 2020-05-08 | NUR ---
PT HR 60-70 PER MONITOR AT THIS TIME
--- NOTE | 2020-05-08 | NUR ---
Transfer of care from Sergio waite.
--- NOTE | 2020-05-08 00:32 | NUR ---
In to see pt at this time.Pt is alert and orientated x3.Pt has clear lung sounds and bowel sounds x4.Pt has no open wounds at this time and trace depedent edema noted and old purple hues on lower legs.Pt has 18 gauge in right neck with good blood return at this time.
--- NOTE | 2020-05-08 02:30 | NUR ---
Pt up to the bathroom and with assist of one.Pt voided yellow urine without issue.Pt aware that she is npo at this time,
--- NOTE | 2020-05-08 02:42 | NUR ---
Spoke with lab stated they had blood on hold for pt at this time.
--- NOTE | 2020-05-08 02:59 | NUR ---
Pt has occasional pacer spikes noted with atrial ryhthym and some one pvs noted.
--- NOTE | 2020-05-08 03:00 | NUR ---
Pt currently sleeping and all siderails up and call vasquez within reach.
[2020-05-08 05:21] LABS: CHLORIDE 109 mmol/L (98-107); CREATININE 0.79 mg/dL (0.55-1.02); POTASSIUM 4.2 mmol/L (3.5-5.1); SODIUM 143 mmol/L (136-145)
[2020-05-08 05:32] LABS: BUN 21 mg/dl (7-24)
--- NOTE | 2020-05-08 05:45 | NUR ---
In to see pt at this time.Pt voided moderate amount of yellow urine at this time.
[2020-05-08 05:59] LABS: BASO % 0.2 % (0.0-1.0); EOS # 0.1 10*3/uL (0.0-0.4); EOS % 1.3 % (1.0-4.0); HEMATOCRIT 26.2 % (37.0-47.0); LYMPH # 1.4 10*3/uL (1.3-4.4); LYMPH % 31.8 % (27.0-41.0); MEAN CELL VOLUME 100.4 fl (81.0-99.0); MEAN CORPUSCULAR HGB 30.7 pg (27.0-31.0); MEAN CORPUSCULAR HGB CONC 30.5 g/dl (33.0-37.0); MEAN PLATELET VOLUME 10.1 fl (9.6-12.3); MONO # 0.5 10*3/uL (0.1-1.0); MONO % 10.1 % (3.0-9.0); NEUT # 2.5 10*3/uL (2.3-7.9); NEUT % 56.4 % (47.0-73.0); PLATELET COUNT AUTOMATED 213 10*3/uL (130-400); RED BLOOD COUNT 2.61 10*6/uL (4.10-5.10); RED CELL DISTRI WIDTH 15.2 % (0-14.5); WHITE BLOOD COUNT 4.5 10*3/uL (4.8-10.8)
--- NOTE | 2020-05-08 07:24 | NUR ---
Transfer of care to Juju waite.
--- NOTE | 2020-05-08 07:50 | NUR ---
NO C/O AT THIS TIME.PT PROVIDED A PILLOW PER REQUEST.VITALS STABLE.---MAGUI CISNEROS RN
--- NOTE | 2020-05-08 09:11 | NUR ---
PT ASSISTED UP TO BSC TO VOID.--MAGUI CISNEROS RN
--- NOTE | 2020-05-08 11:14 | NUR ---
[facility] , under the services of TESS Sloan DO with a diagnosis of GI BLEED . Chief complaint is DENIES AT PRESENT . Patient arrived via bed from ER. Monitor applied. Initial assessment completed. Vital signs taken and recorded. TESS SLOAN DO notified of admission to the unit. Orders received. See assessment for past medical history, medications and allergies. Patient and/or family oriented to unit. [facility]. Clothing/patient valuable form completed. TACO MITCHELL
--- NOTE | 2020-05-08 13:30 | NUR ---
Tankman in to talk to patient. Patient states lives at home with her . There are 0 steps in the home. There are 4 outside steps. Physician: Dr. Greg Chu Pharmacy: [facility] Home health services: none Patient's level of ADLs: minimal assistance Patient has working utilities: yes DME: walker Follow-up physician's appointment after d/c: will be made by the hospitalist nurse director upon discharge Does patient want to access PORTAL?: no Discharge plan discussed with patient. She lives at home with her . She states she is independent in her ADLs and ambulation. Discussed home health care services and she declines. CM will continue to follow for any discharge planning needs. When medically stable she will be discharged to home. She states either her or daughter will provide transportation on discharge. MARITA PEPE
--- NOTE | 2020-05-08 19:00 | NUR ---
REPORT RECEIVED. PT SITTING INBED. NO COMPLAINTS.
--- NOTE | 2020-05-08 21:00 | NUR ---
DR. VELASQUEZ NOTFIED OF PT HR IN 120'S. ALSO NOTIFIED NO HOME MEDICATIONS WERE ORDERED. ORDER TO GIVE 240MG OF CARDIZEM PER HOME MEDS AT THIS TIME,.
--- NOTE | 2020-05-08 22:00 | NUR ---
PT VOCIES NO COMPLAINTS AT THIS TIME.
[2020-05-09] VITALS (8 sets, daily range): BP systolic 97–150; BP diastolic 41–82
[2020-05-09 07:03] LABS: BASO % 0.2 % (0.0-1.0); EOS # 0.1 10*3/uL (0.0-0.4); EOS % 1.7 % (1.0-4.0); HEMATOCRIT 30.9 % (37.0-47.0); LYMPH # 1.3 10*3/uL (1.3-4.4); LYMPH % 30.6 % (27.0-41.0); MEAN CELL VOLUME 99.7 fl (81.0-99.0); MEAN CORPUSCULAR HGB 30.3 pg (27.0-31.0); MEAN CORPUSCULAR HGB CONC 30.4 g/dl (33.0-37.0); MEAN PLATELET VOLUME 9.8 fl (9.6-12.3); MONO # 0.4 10*3/uL (0.1-1.0); MONO % 8.9 % (3.0-9.0); NEUT # 2.4 10*3/uL (2.3-7.9); NEUT % 58.4 % (47.0-73.0); PLATELET COUNT AUTOMATED 228 10*3/uL (130-400); RED CELL DISTRI WIDTH 14.8 % (0-14.5); WHITE BLOOD COUNT 4.2 10*3/uL (4.8-10.8)
[2020-05-09 07:15] LABS: BUN 15 mg/dl (7-24); CHLORIDE 109 mmol/L (98-107); CREATININE 0.82 mg/dL (0.55-1.02); POTASSIUM 3.8 mmol/L (3.5-5.1); SODIUM 142 mmol/L (136-145)
--- NOTE | 2020-05-09 09:00 | NUR ---
CM in to see patient. No new needs or request at this time. Discussed home health care services and she declines. CM will continue to follow for any discharge planning needs. When medically stable she will be discharged to home.
--- NOTE | 2020-05-09 10:45 | NUR ---
PT TAKEN OFF FLOOR TO SURGERY.
--- NOTE | 2020-05-09 20:00 | NUR ---
PATIENT RESTING IN BED C/O BACK PAIN. ENCOURAGED TO TURN, COUGH, AND DEEP BREATHE. VERBALIZED UNDERSTANDING. BED IN LOWEST POSITION, CALL LIGHT IN REACH
--- NOTE | 2020-05-09 20:08 | NUR ---
MEDICATED WITH PRN TYLENOL FOR C/O BACK PAIN, WILL MONITOR
--- NOTE | 2020-05-09 21:08 | NUR ---
MEDICATION EFFECTIVE PER PATIENT
[2020-05-10] VITALS: BP 108/46
--- NOTE | 2020-05-10 05:20 | NUR ---
PATIENT RESTING IN BED WITH NO S/S OF DISTRESS. BED IN LOWEST POSITION, CALL LIGHT IN REACH
[2020-05-10 06:50] LABS: BASO % 0.1 % (0.0-1.0); EOS # 0.1 10*3/uL (0.0-0.4); EOS % 0.9 % (1.0-4.0); LYMPH # 1.3 10*3/uL (1.3-4.4); LYMPH % 13.9 % (27.0-41.0); MEAN CORPUSCULAR HGB 30.7 pg (27.0-31.0); MEAN CORPUSCULAR HGB CONC 30.7 g/dl (33.0-37.0); MEAN PLATELET VOLUME 9.9 fl (9.6-12.3); MONO # 0.5 10*3/uL (0.1-1.0); MONO % 5.4 % (3.0-9.0); NEUT # 7.4 10*3/uL (2.3-7.9); NEUT % 79.5 % (47.0-73.0); PLATELET COUNT AUTOMATED 212 10*3/uL (130-400); RED CELL DISTRI WIDTH 14.8 % (0-14.5); WHITE BLOOD COUNT 9.3 10*3/uL (4.8-10.8)
[2020-05-10 07:03] LABS: BUN 15 mg/dl (7-24); CHLORIDE 110 mmol/L (98-107); CREATININE 0.99 mg/dL (0.55-1.02); POTASSIUM 3.5 mmol/L (3.5-5.1); SODIUM 142 mmol/L (136-145)
[2020-05-10 08:00] VITALS: BP 103/51
[2020-05-10 12:00] VITALS: BP 92/48
--- NOTE | 2020-05-10 13:54 | NUR ---
Discharge instructions reviewed with patient/family. Patient receptive and verbalizes understanding. Follow-up care arranged. Written instructions given to patient/family. NUPUR OREILLY
== END 2020-05-10 14:14 | disposition home or self-care (01) | DRG 378 ==
LOC: ED 17:17 → EDHOLD 21:29 → 4E 21:29
PROVIDERS: Hospitalist; Internal Medicine; Nurse Practitioner; ADMIT Internal Medicine; ATTEND Internal Medicine
PROC: 0DB68ZX Excision of Stomach, Via Natural or Artificial Opening Endoscopic, Diagnostic (ICD-10-PCS; principal; 2020-05-09)
PROC: 0DJD8ZZ Inspection of Lower Intestinal Tract, Via Natural or Artificial Opening Endoscopic (ICD-10-PCS; 2020-05-09)
DX: K29.71 Gastritis, unspecified, with bleeding (principal); I48.20 Chronic atrial fibrillation, unspecified; E44.1 Mild protein-calorie malnutrition; D62 Acute posthemorrhagic anemia; K57.31 Diverticulosis of large intestine without perforation or abscess with bleeding; R73.9 Hyperglycemia, unspecified; E83.41 Hypermagnesemia; F41.9 Anxiety disorder, unspecified; E03.9 Hypothyroidism, unspecified; N18.31 Chronic kidney disease, stage 3a; G40.909 Epilepsy, unspecified, not intractable, without status epilepticus; E78.00 Pure hypercholesterolemia, unspecified; D53.9 Nutritional anemia, unspecified; E87.8 Other disorders of electrolyte and fluid balance, not elsewhere classified; Z96.641 Presence of right artificial hip joint; R73.03 Prediabetes; K64.4 Residual hemorrhoidal skin tags; K64.8 Other hemorrhoids; Z88.1 Allergy status to other antibiotic agents; I12.9 Hypertensive chronic kidney disease with stage 1 through stage 4 chronic kidney disease, or unspecified chronic kidney disease; Z88.8 Allergy status to other drugs, medicaments and biological substances; Z98.49 Cataract extraction status, unspecified eye; Z95.0 Presence of cardiac pacemaker; Z90.49 Acquired absence of other specified parts of digestive tract; Z80.3 Family history of malignant neoplasm of breast; Z80.0 Family history of malignant neoplasm of digestive organs; Z86.73 Personal history of transient ischemic attack (TIA), and cerebral infarction without residual deficits; Z68.24 Body mass index [BMI] 24.0-24.9, adult

== ENCOUNTER → 2020-05-31 | Outpatient (CLI) | payer MEDICARE ==
[2020-05-31 12:53] LABS: BASO % 0.2 % (0.0-1.0); EOS # 0.1 10*3/uL (0.0-0.4); LYMPH # 1.3 10*3/uL (1.3-4.4); LYMPH % 26.4 % (27.0-41.0); MEAN CELL VOLUME 99.7 fl (81.0-99.0); MEAN CORPUSCULAR HGB 29.9 pg (27.0-31.0); MEAN PLATELET VOLUME 10.2 fl (9.6-12.3); MONO # 0.4 10*3/uL (0.1-1.0); MONO % 8.2 % (3.0-9.0); NEUT # 3.2 10*3/uL (2.3-7.9); PLATELET COUNT AUTOMATED 272 10*3/uL (130-400); RED BLOOD COUNT 3.51 10*6/uL (4.10-5.10); RED CELL DISTRI WIDTH 14.7 % (0-14.5)
== END | disposition home or self-care (01) ==
LOC: LAB 12:01
PROVIDERS: Family Medicine; ATTEND Internal Medicine Cardiovascular Disease
DX: D64.9 Anemia, unspecified (principal); I48.20 Chronic atrial fibrillation, unspecified

== ENCOUNTER → 2020-05-31 | Outpatient (CLI) | payer MEDICARE | END | disposition home or self-care (01) | LOC: COVID19 12:44 | PROVIDERS: ATTEND Family Medicine | DX: Z20.828 Contact with and (suspected) exposure to other viral communicable diseases (principal) ==

== ENCOUNTER → 2020-06-26 | Outpatient (CLI) | payer MEDICARE ==
[2020-06-26 13:38] LABS: BILIRUBIN Negative (Negative); BLOOD Negative (Negative); CLARITY Clear (Clear); COLOR Yellow (Yellow); GLUCOSE Negative (Negative); KETONE Negative (Negative); LEUKO ESTERASE 1+ (Negative); NITRITE Negative (Negative); PH 5.5 (4.5-8.0); UROBILINOGEN 0.2 E.U./dl (0.0-1.0)
[2020-06-26 14:03] LABS: BACTERIA TRACE; RBC 0-2 rbc/hpf (0-2); WBC 16-20 wbc/hpf (0-5)
== END | disposition home or self-care (01) ==
LOC: LAB 13:14
PROVIDERS: ATTEND Family Medicine
DX: N39.0 Urinary tract infection, site not specified (principal)

== ENCOUNTER → 2020-07-03 | Outpatient (CLI) | payer MEDICARE | END | disposition home or self-care (01) | LOC: RAD 19:04 | PROVIDERS: ATTEND Family Medicine | DX: R10.2 Pelvic and perineal pain (principal); M25.559 Pain in unspecified hip ==

== ENCOUNTER → 2020-07-20 | Outpatient (CLI) | payer MEDICARE ==
[2020-07-20 15:44] LABS: BASO % 0.3 % (0.0-1.0); EOS % 0.7 % (1.0-4.0); HEMATOCRIT 38.4 % (37.0-47.0); LYMPH # 1.1 10*3/uL (1.3-4.4); LYMPH % 18.8 % (27.0-41.0); MEAN CELL VOLUME 93.4 fl (81.0-99.0); MEAN CORPUSCULAR HGB 28.2 pg (27.0-31.0); MEAN CORPUSCULAR HGB CONC 30.2 g/dl (33.0-37.0); MEAN PLATELET VOLUME 10.4 fl (9.6-12.3); MONO # 0.5 10*3/uL (0.1-1.0); MONO % 8.2 % (3.0-9.0); NEUT # 4.1 10*3/uL (2.3-7.9); NEUT % 71.8 % (47.0-73.0); PLATELET COUNT AUTOMATED 232 10*3/uL (130-400); RED BLOOD COUNT 4.11 10*6/uL (4.10-5.10); RED CELL DISTRI WIDTH 13.7 % (0-14.5); WHITE BLOOD COUNT 5.7 10*3/uL (4.8-10.8)
== END | disposition home or self-care (01) ==
LOC: LAB 15:11
PROVIDERS: ATTEND Family Medicine
DX: D64.9 Anemia, unspecified (principal)

== ENCOUNTER → 2020-09-11 | Outpatient (CLI) | payer MEDICARE ==
[2020-09-11 12:27] LABS: BASO % 0.2 % (0.0-1.0); EOS % 0.6 % (1.0-4.0); HEMATOCRIT 39.9 % (37.0-47.0); LYMPH # 1.2 10*3/uL (1.3-4.4); LYMPH % 25.8 % (27.0-41.0); MEAN CELL VOLUME 91.5 fl (81.0-99.0); MEAN CORPUSCULAR HGB 28.9 pg (27.0-31.0); MEAN CORPUSCULAR HGB CONC 31.6 g/dl (33.0-37.0); MEAN PLATELET VOLUME 10.4 fl (9.6-12.3); MONO # 0.4 10*3/uL (0.1-1.0); MONO % 7.9 % (3.0-9.0); NEUT # 3.1 10*3/uL (2.3-7.9); NEUT % 65.3 % (47.0-73.0); PLATELET COUNT AUTOMATED 216 10*3/uL (130-400); RED BLOOD COUNT 4.36 10*6/uL (4.10-5.10); RED CELL DISTRI WIDTH 16.7 % (0-14.5); WHITE BLOOD COUNT 4.8 10*3/uL (4.8-10.8)
[2020-09-11 12:55] LABS: BILIRUBIN, DIRECT 0.2 mg/dL (0.0-0.2); BUN 24 mg/dl (7-24); CHLORIDE 106 mmol/L (98-107); CREATININE 0.99 mg/dL (0.55-1.02); POTASSIUM 3.9 mmol/L (3.5-5.1); SGOT/AST 29 IU/L (3-35); SODIUM 144 mmol/L (136-145)
[2020-09-11 12:57] LABS: ALKALINE PHOSPHATASE 90 U/L (45-117); SGPT/ALT 29 U/L (12-78); TOTAL PROTEIN 8.2 gm/dL (6.4-8.2)
== END | disposition home or self-care (01) ==
LOC: LAB 12:02
PROVIDERS: ATTEND Family Medicine
DX: M25.552 Pain in left hip (principal); I48.91 Unspecified atrial fibrillation

== ENCOUNTER → 2020-10-16 | Outpatient (CLI) | payer MEDICARE | END | disposition home or self-care (01) | LOC: RESCLI 06:41 | PROVIDERS: ATTEND Student in an Organized Health Care Education/Training Program | DX: I48.91 Unspecified atrial fibrillation (principal); K21.9 Gastro-esophageal reflux disease without esophagitis; E03.9 Hypothyroidism, unspecified; J44.9 Chronic obstructive pulmonary disease, unspecified; G40.909 Epilepsy, unspecified, not intractable, without status epilepticus; R11.0 Nausea; Z79.899 Other long term (current) drug therapy; Z90.49 Acquired absence of other specified parts of digestive tract; Z95.0 Presence of cardiac pacemaker; Z98.890 Other specified postprocedural states; Z88.8 Allergy status to other drugs, medicaments and biological substances ==

== ENCOUNTER → 2020-11-28 | Outpatient (CLI) | payer MEDICARE | END | disposition home or self-care (01) | LOC: US 10:00 | PROVIDERS: ATTEND Family Medicine | DX: N28.1 Cyst of kidney, acquired (principal); Z90.49 Acquired absence of other specified parts of digestive tract ==

== ENCOUNTER → 2020-12-04 | Outpatient (CLI) | payer MEDICARE | END | disposition home or self-care (01) | LOC: RAD 10:50 | PROVIDERS: ATTEND Family Medicine | DX: J98.11 Atelectasis (principal); I51.7 Cardiomegaly; J90 Pleural effusion, not elsewhere classified; Z95.810 Presence of automatic (implantable) cardiac defibrillator ==

== ENCOUNTER 2020-12-10 13:35 | Inpatient (IN) | payer MEDICARE ==
[2020-12-10] VITALS (17 sets, daily range): BP systolic 114–159; BP diastolic 53–84
[~2020-12-10] VITALS: Ht 179 cm; Wt 79.9 kg
[2020-12-10 14:19] LABS: EOS % 0.3 % (1.0-4.0); LYMPH # 0.6 10*3/uL (1.3-4.4); LYMPH % 14.1 % (27.0-41.0); MEAN CELL VOLUME 96.3 fl (81.0-99.0); MEAN CORPUSCULAR HGB 28.2 pg (27.0-31.0); MEAN CORPUSCULAR HGB CONC 29.3 g/dl (33.0-37.0); MEAN PLATELET VOLUME 10.4 fl (9.6-12.3); MONO # 0.3 10*3/uL (0.1-1.0); MONO % 6.9 % (3.0-9.0); NEUT # 3.1 10*3/uL (2.3-7.9); NEUT % 78.4 % (47.0-73.0); PLATELET COUNT AUTOMATED 216 10*3/uL (130-400); RED BLOOD COUNT 2.16 10*6/uL (4.10-5.10); RED CELL DISTRI WIDTH 14.2 % (0-14.5); WHITE BLOOD COUNT 3.9 10*3/uL (4.8-10.8)
[2020-12-10 14:22] LABS: HEMATOCRIT 20.8 % (37.0-47.0)
[2020-12-10 14:34] LABS: ALBUMIN 3.3 gm/dl (3.1-4.5); ALKALINE PHOSPHATASE 61 U/L (45-117); BUN 25 mg/dl (7-24); CHLORIDE 105 mmol/L (98-107); CREATININE 0.97 mg/dL (0.55-1.02); POTASSIUM 3.9 mmol/L (3.5-5.1); SGOT/AST 19 IU/L (3-35); SGPT/ALT 17 U/L (12-78); SODIUM 139 mmol/L (136-145); TOTAL PROTEIN 6.4 gm/dL (6.4-8.2)
[2020-12-10 14:45] LABS: PLATELET SUFFICIENCY NORMAL (NORMAL); POLYCHROMASIA SLIGHT; TOTAL CELLS COUNTED 100 #CELLS
[2020-12-10] MEDS ORDERED: NEXIUM40 MG PO (17:18)
[2020-12-10] MEDS ORDERED: POTASSIUM CHLO10 ME4 PO (17:18)
[2020-12-10] MEDS ORDERED: CODEINE-GUAIFE120 M1 PO (17:19)
[2020-12-11] VITALS: BP 153/59
[2020-12-11 01:00] VITALS: BP 142/64
[2020-12-11 01:45] VITALS: BP 127/58
[2020-12-11 02:15] VITALS: BP 140/60
[2020-12-11 05:47] LABS: BILIRUBIN Negative (Negative); BLOOD Negative (Negative); CLARITY Clear (Clear); COLOR Yellow (Yellow); GLUCOSE Negative (Negative); KETONE Trace (Negative); LEUKO ESTERASE Negative (Negative); NITRITE Negative (Negative); PH 7.5 (4.5-8.0)
[2020-12-11 06:37] LABS: BASO % 0.2 % (0.0-1.0); EOS % 0.6 % (1.0-4.0); LYMPH # 0.8 10*3/uL (1.3-4.4); LYMPH % 15.1 % (27.0-41.0); MEAN CELL VOLUME 93.9 fl (81.0-99.0); MEAN CORPUSCULAR HGB 29.1 pg (27.0-31.0); MEAN PLATELET VOLUME 9.9 fl (9.6-12.3); MONO # 0.5 10*3/uL (0.1-1.0); MONO % 10.6 % (3.0-9.0); NEUT # 3.7 10*3/uL (2.3-7.9); NEUT % 73.3 % (47.0-73.0); PLATELET COUNT AUTOMATED 215 10*3/uL (130-400); RED BLOOD COUNT 3.09 10*6/uL (4.10-5.10); RED CELL DISTRI WIDTH 14.3 % (0-14.5); WHITE BLOOD COUNT 5.1 10*3/uL (4.8-10.8)
[2020-12-11 06:48] LABS: ALBUMIN 3.3 gm/dl (3.1-4.5); CHLORIDE 107 mmol/L (98-107); POTASSIUM 3.8 mmol/L (3.5-5.1); SGOT/AST 18 IU/L (3-35); SGPT/ALT 17 U/L (12-78); SODIUM 141 mmol/L (136-145); TOTAL PROTEIN 6.7 gm/dL (6.4-8.2)
[2020-12-11 06:57] LABS: ALKALINE PHOSPHATASE 65 U/L (45-117); THYROID STIM HORMONE (HS) 0.814 uIU/ml (0.358-4.75)
[2020-12-11 06:59] LABS: BUN 14 mg/dl (7-24)
[2020-12-11 08:00] VITALS: BP 148/53
[2020-12-11 16:00] VITALS: BP 124/60
[2020-12-12] VITALS (7 sets, daily range): BP systolic 121–143; BP diastolic 55–75
[2020-12-12 06:33] LABS: BASO % 0.2 % (0.0-1.0); EOS # 0.1 10*3/uL (0.0-0.4); EOS % 2.7 % (1.0-4.0); HEMATOCRIT 27.5 % (37.0-47.0); LYMPH # 1.1 10*3/uL (1.3-4.4); LYMPH % 24.9 % (27.0-41.0); MEAN CELL VOLUME 95.5 fl (81.0-99.0); MEAN CORPUSCULAR HGB 29.2 pg (27.0-31.0); MEAN CORPUSCULAR HGB CONC 30.5 g/dl (33.0-37.0); MEAN PLATELET VOLUME 10.2 fl (9.6-12.3); MONO # 0.6 10*3/uL (0.1-1.0); MONO % 12.8 % (3.0-9.0); NEUT # 2.6 10*3/uL (2.3-7.9); NEUT % 59.4 % (47.0-73.0); PLATELET COUNT AUTOMATED 205 10*3/uL (130-400); RED BLOOD COUNT 2.88 10*6/uL (4.10-5.10); RED CELL DISTRI WIDTH 14.2 % (0-14.5); WHITE BLOOD COUNT 4.4 10*3/uL (4.8-10.8)
[2020-12-13] VITALS: BP 111/51
[2020-12-13 06:36] LABS: BASO % 0.3 % (0.0-1.0); EOS # 0.1 10*3/uL (0.0-0.4); HEMATOCRIT 29.6 % (37.0-47.0); LYMPH % 24.7 % (27.0-41.0); MEAN CELL VOLUME 94.6 fl (81.0-99.0); MEAN CORPUSCULAR HGB 28.8 pg (27.0-31.0); MEAN CORPUSCULAR HGB CONC 30.4 g/dl (33.0-37.0); MEAN PLATELET VOLUME 10.1 fl (9.6-12.3); MONO # 0.5 10*3/uL (0.1-1.0); MONO % 12.3 % (3.0-9.0); NEUT # 2.4 10*3/uL (2.3-7.9); NEUT % 60.4 % (47.0-73.0); PLATELET COUNT AUTOMATED 214 10*3/uL (130-400); RED BLOOD COUNT 3.13 10*6/uL (4.10-5.10); RED CELL DISTRI WIDTH 14.2 % (0-14.5)
[2020-12-13 08:00] VITALS: BP 142/64
[2020-12-13] MEDS ORDERED: XARELTO20 M1 PO (11:09)
[2020-12-13] MEDS ORDERED: AYR SALINE NA14.1 GM T (11:30)
[2020-12-13 12:00] VITALS: BP 124/64
== END 2020-12-13 14:20 | disposition home health service (06) | DRG 378 ==
LOC: ED 13:35 → 4E 14:57 → EDHOLD 14:57 → 4E 20:31
PROVIDERS: Internal Medicine; Registered Nurse; Student in an Organized Health Care Education/Training Program; ADMIT Internal Medicine; ATTEND Internal Medicine
PROC: 30233N1 Transfusion of Nonautologous Red Blood Cells into Peripheral Vein, Percutaneous Approach (ICD-10-PCS; principal; 2020-12-10)
PROC: 0DJ08ZZ Inspection of Upper Intestinal Tract, Via Natural or Artificial Opening Endoscopic (ICD-10-PCS; 2020-12-12)
DX: K29.71 Gastritis, unspecified, with bleeding (principal); D68.69 Other thrombophilia; E44.1 Mild protein-calorie malnutrition; I48.20 Chronic atrial fibrillation, unspecified; J96.11 Chronic respiratory failure with hypoxia; I12.9 Hypertensive chronic kidney disease with stage 1 through stage 4 chronic kidney disease, or unspecified chronic kidney disease; D50.0 Iron deficiency anemia secondary to blood loss (chronic); F41.9 Anxiety disorder, unspecified; G40.909 Epilepsy, unspecified, not intractable, without status epilepticus; N18.31 Chronic kidney disease, stage 3a; E78.00 Pure hypercholesterolemia, unspecified; I48.91 Unspecified atrial fibrillation; R73.9 Hyperglycemia, unspecified; E83.41 Hypermagnesemia; D72.810 Lymphocytopenia; E03.9 Hypothyroidism, unspecified; R73.03 Prediabetes; R26.81 Unsteadiness on feet; R42 Dizziness and giddiness; Z88.1 Allergy status to other antibiotic agents; Z88.8 Allergy status to other drugs, medicaments and biological substances; Z98.49 Cataract extraction status, unspecified eye; Z90.49 Acquired absence of other specified parts of digestive tract; Z96.641 Presence of right artificial hip joint; Z80.3 Family history of malignant neoplasm of breast; Z80.0 Family history of malignant neoplasm of digestive organs; I69.30 Unspecified sequelae of cerebral infarction; Z79.01 Long term (current) use of anticoagulants; Z79.890 Hormone replacement therapy; Z79.899 Other long term (current) drug therapy; T45.515A Adverse effect of anticoagulants, initial encounter; Y92.89 Other specified places as the place of occurrence of the external cause; Z99.81 Dependence on supplemental oxygen; Z68.24 Body mass index [BMI] 24.0-24.9, adult

== ENCOUNTER 2020-12-19 17:17 | Inpatient (IN) | payer MEDICARE ==
[~2020-12-19] VITALS: Ht 177.8 cm; Wt 74.9 kg
[~2020-12-19 17:17] MED LIST changes: +AYR SALINE NA14.1 GM T; +CODEINE-GUAIFE120 M1 PO; +NEXIUM40 MG PO; +POTASSIUM CHLO10 ME4 PO
[2020-12-19 17:19] VITALS: BP 180/91
[2020-12-19 17:52] LABS: BILIRUBIN Negative (Negative); BLOOD Negative (Negative); CLARITY Clear (Clear); COLOR Yellow (Yellow); GLUCOSE Negative (Negative); KETONE Negative (Negative); LEUKO ESTERASE Negative (Negative); NITRITE Negative (Negative); PH 7.5 (4.5-8.0)
[2020-12-19 18:08] LABS: BASO % 0.2 % (0.0-1.0); EOS % 0.8 % (1.0-4.0); HEMATOCRIT 32.4 % (37.0-47.0); LYMPH % 18.4 % (27.0-41.0); MEAN CELL VOLUME 93.9 fl (81.0-99.0); MEAN CORPUSCULAR HGB 28.4 pg (27.0-31.0); MEAN CORPUSCULAR HGB CONC 30.2 g/dl (33.0-37.0); MEAN PLATELET VOLUME 9.5 fl (9.6-12.3); MONO # 0.4 10*3/uL (0.1-1.0); MONO % 7.6 % (3.0-9.0); NEUT # 3.8 10*3/uL (2.3-7.9); NEUT % 72.8 % (47.0-73.0); PLATELET COUNT AUTOMATED 289 10*3/uL (130-400); RED BLOOD COUNT 3.45 10*6/uL (4.10-5.10); RED CELL DISTRI WIDTH 14.8 % (0-14.5); WHITE BLOOD COUNT 5.2 10*3/uL (4.8-10.8)
[2020-12-19 18:12] LABS: BACTERIA TRACE; EPITHELIAL CELLS 0-2; RBC 0-2 rbc/hpf (0-2); WBC 0-2 wbc/hpf (0-5)
[2020-12-19 18:24] LABS: ALBUMIN 3.6 gm/dl (3.1-4.5); ALKALINE PHOSPHATASE 79 U/L (45-117); BUN 18 mg/dl (7-24); CHLORIDE 108 mmol/L (98-107); CREATININE 0.98 mg/dL (0.55-1.02); POTASSIUM 3.8 mmol/L (3.5-5.1); SGOT/AST 20 IU/L (3-35); SGPT/ALT 17 U/L (12-78); SODIUM 136 mmol/L (136-145); TOTAL PROTEIN 7.6 gm/dL (6.4-8.2)
[2020-12-19 18:41] VITALS: BP 156/84
[2020-12-19 20:00] VITALS: BP 154/74
[2020-12-19 21:23] VITALS: BP 175/79
[2020-12-20] VITALS: BP 160/57
[2020-12-20 06:19] LABS: BUN 15 mg/dl (7-24); CHLORIDE 108 mmol/L (98-107); POTASSIUM 3.7 mmol/L (3.5-5.1); SODIUM 139 mmol/L (136-145)
[2020-12-20 06:20] LABS: BASO % 0.5 % (0.0-1.0); EOS # 0.1 10*3/uL (0.0-0.4); EOS % 2.2 % (1.0-4.0); HEMATOCRIT 32.6 % (37.0-47.0); LYMPH % 24.1 % (27.0-41.0); MEAN CELL VOLUME 93.1 fl (81.0-99.0); MEAN CORPUSCULAR HGB 27.7 pg (27.0-31.0); MEAN CORPUSCULAR HGB CONC 29.8 g/dl (33.0-37.0); MEAN PLATELET VOLUME 9.8 fl (9.6-12.3); MONO # 0.5 10*3/uL (0.1-1.0); NEUT # 2.4 10*3/uL (2.3-7.9); NEUT % 59.7 % (47.0-73.0); PLATELET COUNT AUTOMATED 311 10*3/uL (130-400); RED CELL DISTRI WIDTH 14.7 % (0-14.5); WHITE BLOOD COUNT 4.1 10*3/uL (4.8-10.8)
[2020-12-20 06:25] LABS: ALBUMIN 3.2 gm/dl (3.1-4.5); ALKALINE PHOSPHATASE 82 U/L (45-117); CHOLESTEROL 190 mg/dL (<200); CREATININE 0.75 mg/dL (0.55-1.02); LDL CHOLESTEROL 92 mg/dL (9-159); SGOT/AST 18 IU/L (3-35); SGPT/ALT 18 U/L (12-78); TOTAL PROTEIN 7.5 gm/dL (6.4-8.2); TRIGLYCERIDES 61 mg/dl (<150)
[2020-12-20 08:00] VITALS: BP 155/54
[2020-12-20 12:03] VITALS: BP 155/54
[2020-12-20 16:00] VITALS: BP 125/56
[2020-12-20 20:00] VITALS: BP 140/73
[2020-12-21] VITALS: BP 115/69
[2020-12-21 06:12] LABS: BASO % 0.2 % (0.0-1.0); EOS # 0.2 10*3/uL (0.0-0.4); EOS % 3.3 % (1.0-4.0); HEMATOCRIT 32.1 % (37.0-47.0); LYMPH # 1.3 10*3/uL (1.3-4.4); LYMPH % 28.1 % (27.0-41.0); MEAN CELL VOLUME 91.7 fl (81.0-99.0); MEAN CORPUSCULAR HGB CONC 30.5 g/dl (33.0-37.0); MONO # 0.5 10*3/uL (0.1-1.0); MONO % 11.5 % (3.0-9.0); NEUT # 2.6 10*3/uL (2.3-7.9); NEUT % 56.7 % (47.0-73.0); PLATELET COUNT AUTOMATED 314 10*3/uL (130-400); RED CELL DISTRI WIDTH 15.1 % (0-14.5); WHITE BLOOD COUNT 4.5 10*3/uL (4.8-10.8)
[2020-12-21 06:25] LABS: BUN 18 mg/dl (7-24); CHLORIDE 109 mmol/L (98-107); CREATININE 0.83 mg/dL (0.55-1.02); POTASSIUM 3.7 mmol/L (3.5-5.1); SODIUM 137 mmol/L (136-145)
[2020-12-21 08:00] VITALS: BP 147/84
[2020-12-21 12:00] VITALS: BP 145/78
[2020-12-21 15:59] VITALS: BP 125/55
[2020-12-21 20:00] VITALS: BP 135/65
[2020-12-22] VITALS: BP 136/63
[2020-12-22 08:00] VITALS: BP 140/68
[2020-12-22 12:00] VITALS: BP 134/66
[2020-12-22 16:00] VITALS: BP 141/63
[2020-12-22 20:00] VITALS: BP 125/52
[2020-12-23] VITALS: BP 117/50
[2020-12-23 08:00] VITALS: BP 150/74
[2020-12-23 12:00] VITALS: BP 112/57
[2020-12-23 16:00] VITALS: BP 97/64
[2020-12-23 20:03] VITALS: BP 109/56
[2020-12-24] VITALS: BP 125/59
[2020-12-24 08:00] VITALS: BP 141/68
[2020-12-24 12:00] VITALS: BP 100/50
[2020-12-24 16:00] VITALS: BP 102/57
[2020-12-24 20:00] VITALS: BP 112/51
[2020-12-25] VITALS: BP 120/55
[2020-12-25 06:22] LABS: BASO % 0.2 % (0.0-1.0); EOS # 0.1 10*3/uL (0.0-0.4); EOS % 1.9 % (1.0-4.0); HEMATOCRIT 29.8 % (37.0-47.0); LYMPH % 19.4 % (27.0-41.0); MEAN CELL VOLUME 90.9 fl (81.0-99.0); MEAN CORPUSCULAR HGB CONC 30.9 g/dl (33.0-37.0); MONO # 0.5 10*3/uL (0.1-1.0); MONO % 8.9 % (3.0-9.0); NEUT # 3.6 10*3/uL (2.3-7.9); NEUT % 69.4 % (47.0-73.0); PLATELET COUNT AUTOMATED 326 10*3/uL (130-400); RED BLOOD COUNT 3.28 10*6/uL (4.10-5.10); RED CELL DISTRI WIDTH 14.9 % (0-14.5); WHITE BLOOD COUNT 5.2 10*3/uL (4.8-10.8)
[2020-12-25 06:28] LABS: BUN 21 mg/dl (7-24); CHLORIDE 107 mmol/L (98-107); CREATININE 0.76 mg/dL (0.55-1.02); POTASSIUM 4.1 mmol/L (3.5-5.1); SODIUM 135 mmol/L (136-145)
[2020-12-25 08:00] VITALS: BP 137/69
[2020-12-25 12:00] VITALS: BP 114/58
[2020-12-25 16:00] VITALS: BP 95/50
[2020-12-25 20:00] VITALS: BP 115/51
[2020-12-26] VITALS: BP 100/62
[2020-12-26 08:00] VITALS: BP 144/59
[2020-12-26 12:00] VITALS: BP 136/64
[2020-12-26 16:00] VITALS: BP 104/43
[2020-12-26 20:00] VITALS: BP 111/58
[2020-12-27] VITALS: BP 146/67
[2020-12-27 06:42] LABS: BASO % 0.4 % (0.0-1.0); EOS # 0.1 10*3/uL (0.0-0.4); EOS % 2.1 % (1.0-4.0); HEMATOCRIT 32.7 % (37.0-47.0); LYMPH # 1.5 10*3/uL (1.3-4.4); LYMPH % 27.5 % (27.0-41.0); MEAN CELL VOLUME 91.3 fl (81.0-99.0); MEAN CORPUSCULAR HGB 27.4 pg (27.0-31.0); MEAN PLATELET VOLUME 10.3 fl (9.6-12.3); MONO # 0.5 10*3/uL (0.1-1.0); MONO % 9.5 % (3.0-9.0); NEUT # 3.2 10*3/uL (2.3-7.9); NEUT % 60.5 % (47.0-73.0); PLATELET COUNT AUTOMATED 408 10*3/uL (130-400); RED BLOOD COUNT 3.58 10*6/uL (4.10-5.10); RED CELL DISTRI WIDTH 14.8 % (0-14.5); WHITE BLOOD COUNT 5.3 10*3/uL (4.8-10.8)
[2020-12-27 06:52] LABS: BUN 22 mg/dl (7-24); CHLORIDE 106 mmol/L (98-107); CREATININE 0.78 mg/dL (0.55-1.02); POTASSIUM 4.1 mmol/L (3.5-5.1); SODIUM 139 mmol/L (136-145)
[2020-12-27 08:00] VITALS: BP 144/82
[2020-12-27] MEDS ORDERED: ASPIRIN ADULT L81 M2 PO (10:47)
[2020-12-27] MEDS ORDERED: ATORVASTATIN CA40 M1 PO (10:47)
[2020-12-27] MEDS ORDERED: XARELTO20 M1 PO (10:47)
[2020-12-27] MEDS ORDERED: FAMOTIDINE20 M1 PO (10:47)
== END 2020-12-27 12:15 | disposition short-term general hospital (02) | DRG 65 ==
LOC: ED 17:17 → 4E 22:21 → EDHOLD 22:21 → 4E 23:06
PROVIDERS: Hospitalist; Internal Medicine; Social Worker Clinical; Student in an Organized Health Care Education/Training Program; ADMIT Internal Medicine; ATTEND Internal Medicine
DX: I63.9 Cerebral infarction, unspecified (principal); N17.9 Acute kidney failure, unspecified; I48.19 Other persistent atrial fibrillation; G40.909 Epilepsy, unspecified, not intractable, without status epilepticus; N18.31 Chronic kidney disease, stage 3a; Z96.641 Presence of right artificial hip joint; E89.0 Postprocedural hypothyroidism; D64.9 Anemia, unspecified; F41.9 Anxiety disorder, unspecified; R73.9 Hyperglycemia, unspecified; E78.00 Pure hypercholesterolemia, unspecified; E87.8 Other disorders of electrolyte and fluid balance, not elsewhere classified; E83.41 Hypermagnesemia; I12.9 Hypertensive chronic kidney disease with stage 1 through stage 4 chronic kidney disease, or unspecified chronic kidney disease; R26.2 Difficulty in walking, not elsewhere classified; Z88.1 Allergy status to other antibiotic agents; Z88.8 Allergy status to other drugs, medicaments and biological substances; Z98.49 Cataract extraction status, unspecified eye; Z95.0 Presence of cardiac pacemaker; Z90.49 Acquired absence of other specified parts of digestive tract; Z80.3 Family history of malignant neoplasm of breast; Z80.0 Family history of malignant neoplasm of digestive organs; Z79.82 Long term (current) use of aspirin; Z79.899 Other long term (current) drug therapy; Z20.822 Contact with and (suspected) exposure to COVID-19

== ENCOUNTER 2021-11-08 12:03 | Inpatient (IN) | payer MEDICARE ==
[~2021-11-08] VITALS: Ht 167.6 cm; Wt 83.5 kg
[~2021-11-08 12:03] MED LIST changes: +ASPIRIN ADULT L81 M2 PO; +ATORVASTATIN CA40 M1 PO; +AVPAK AZITHROM250 M1 PO; +FAMOTIDINE20 M1 PO; +SERTRALINE HYDR25 MG PO
[2021-11-08 12:04] VITALS: BP 106/79
[2021-11-08 12:48] LABS: HEMATOCRIT 30.3 % (37.0-47.0); MEAN CELL VOLUME 92.1 fl (81.0-99.0); MEAN CORPUSCULAR HGB 28.6 pg (27.0-31.0); MEAN PLATELET VOLUME 9.9 fl (9.6-12.3); PLATELET COUNT AUTOMATED 223 10*3/uL (130-400); RED BLOOD COUNT 3.29 10*6/uL (4.10-5.10); WHITE BLOOD COUNT 12.8 10*3/uL (4.8-10.8)
[2021-11-08 12:49] LABS: MANUAL DIFF REFLEX YES
[2021-11-08 12:54] VITALS: BP 108/59
[2021-11-08 12:59] LABS: ACT PARTIAL THROMBO TIME 23.9 SECONDS (20.0-32.1); INTERNATIONAL NORM RATIO 1.1 (2.0-3.5)
[2021-11-08 13:05] LABS: ALKALINE PHOSPHATASE 68 U/L (45-117); BUN 14 mg/dl (7-24); CHLORIDE 105 mmol/L (98-107); CREATININE 0.95 mg/dL (0.55-1.02); LIPASE 64 U/L (73-393); POTASSIUM 4.2 mmol/L (3.5-5.1); SGOT/AST 20 IU/L (3-35); SGPT/ALT 17 U/L (12-78); SODIUM 137 mmol/L (136-145); TOTAL PROTEIN 7.8 gm/dL (6.4-8.2)
[2021-11-08 13:19] LABS: PLATELET SUFFICIENCY NORMAL (NORMAL); POLYCHROMASIA SLIGHT; TOTAL CELLS COUNTED 100 #CELLS
[2021-11-08 16:35] LABS: BILIRUBIN Negative (Negative); BLOOD Negative (Negative); CLARITY Clear (Clear); COLOR Yellow (Yellow); GLUCOSE Negative (Negative); KETONE Negative (Negative); LEUKO ESTERASE 3+ (Negative); NITRITE Negative (Negative); SPECIFIC GRAVITY 1.015 (1.001-1.030); UROBILINOGEN 0.2 E.U./dl (0.0-1.0)
[2021-11-08 16:45] VITALS: BP 112/54
[2021-11-08 16:52] LABS: BACTERIA 1+; WBC 41-50 wbc/hpf (0-5)
[2021-11-08 20:00] VITALS: BP 116/60
[2021-11-08] MEDS ORDERED: ELIQUIS5 M1 PO (20:28)
[2021-11-08] MEDS ORDERED: BENZONATATE100 M1 PO (20:32)
[2021-11-08] MEDS ORDERED: FUROSEMIDE20 M1 PO (20:33)
[2021-11-08] MEDS ORDERED: PREDNISONE10 MG PO (20:38)
[2021-11-08] MEDS ORDERED: MECLIZINE HYD12.5 MG PO (20:40)
[2021-11-08] MEDS ORDERED: OXYBUTYNIN CHLOR5 M1 PO (20:41)
[2021-11-08] MEDS ORDERED: POTASSIUM CHLO10 ME5 PO (20:42)
[2021-11-08] MEDS ORDERED: CICLOPIROX T (20:46)
[2021-11-08] MEDS ORDERED: CODEINE-GUAIFE120 M1 PO (20:48)
[2021-11-08] MEDS ORDERED: PROAIR DIGIHAL90 MCG INH (20:53)
[2021-11-08] MEDS ORDERED: REFRESH TEARS15 ML OU (20:55)
[2021-11-09] VITALS: BP 112/60
[2021-11-09 06:06] LABS: BUN 13 mg/dl (7-24); CHLORIDE 106 mmol/L (98-107); CREATININE 0.79 mg/dL (0.55-1.02); POTASSIUM 4.4 mmol/L (3.5-5.1); SGOT/AST 18 IU/L (3-35); SGPT/ALT 18 U/L (12-78); SODIUM 138 mmol/L (136-145)
[2021-11-09 06:09] LABS: ALKALINE PHOSPHATASE 64 U/L (45-117); TOTAL PROTEIN 7.6 gm/dL (6.4-8.2)
[2021-11-09 06:13] LABS: BASO % 0.2 % (0.0-1.0); EOS % 0.2 % (1.0-4.0); HEMATOCRIT 30.9 % (37.0-47.0); LYMPH # 1.2 10*3/uL (1.3-4.4); LYMPH % 9.8 % (27.0-41.0); MEAN CELL VOLUME 93.6 fl (81.0-99.0); MEAN CORPUSCULAR HGB 28.8 pg (27.0-31.0); MEAN CORPUSCULAR HGB CONC 30.7 g/dl (33.0-37.0); MEAN PLATELET VOLUME 10.4 fl (9.6-12.3); MONO # 0.4 10*3/uL (0.1-1.0); MONO % 3.3 % (3.0-9.0); NEUT # 10.5 10*3/uL (2.3-7.9); PLATELET COUNT AUTOMATED 216 10*3/uL (130-400); RED CELL DISTRI WIDTH 16.2 % (0-14.5); WHITE BLOOD COUNT 12.2 10*3/uL (4.8-10.8)
[2021-11-09 08:00] VITALS: BP 124/84
[2021-11-09 12:00] VITALS: BP 107/56
[2021-11-09 16:00] VITALS: BP 90/50
[2021-11-09 20:00] VITALS: BP 125/69
[2021-11-10] VITALS: BP 109/69
[2021-11-10 05:55] LABS: ALKALINE PHOSPHATASE 56 U/L (45-117); BUN 19 mg/dl (7-24); CHLORIDE 105 mmol/L (98-107); CREATININE 0.66 mg/dL (0.55-1.02); POTASSIUM 4.3 mmol/L (3.5-5.1); SGOT/AST 15 IU/L (3-35); SGPT/ALT 16 U/L (12-78); SODIUM 137 mmol/L (136-145); TOTAL PROTEIN 6.9 gm/dL (6.4-8.2)
[2021-11-10 06:07] LABS: HEMATOCRIT 28.8 % (37.0-47.0); LYMPH # 0.5 10*3/uL (1.3-4.4); LYMPH % 6.8 % (27.0-41.0); MEAN CELL VOLUME 94.1 fl (81.0-99.0); MEAN CORPUSCULAR HGB 29.1 pg (27.0-31.0); MEAN CORPUSCULAR HGB CONC 30.9 g/dl (33.0-37.0); MEAN PLATELET VOLUME 10.7 fl (9.6-12.3); MONO # 0.3 10*3/uL (0.1-1.0); MONO % 3.4 % (3.0-9.0); NEUT # 7.2 10*3/uL (2.3-7.9); NEUT % 89.4 % (47.0-73.0); PLATELET COUNT AUTOMATED 195 10*3/uL (130-400); RED BLOOD COUNT 3.06 10*6/uL (4.10-5.10); RED CELL DISTRI WIDTH 15.9 % (0-14.5)
[2021-11-10 08:00] VITALS: BP 123/63
[2021-11-10 12:00] VITALS: BP 127/62
[2021-11-10 16:00] VITALS: BP 110/64
[2021-11-10 20:00] VITALS: BP 111/86
[2021-11-11] VITALS: BP 98/51
[2021-11-11 05:38] LABS: ALKALINE PHOSPHATASE 51 U/L (45-117); BUN 23 mg/dl (7-24); CHLORIDE 106 mmol/L (98-107); POTASSIUM 3.8 mmol/L (3.5-5.1); SGOT/AST 19 IU/L (3-35); SGPT/ALT 16 U/L (12-78); SODIUM 139 mmol/L (136-145); TOTAL PROTEIN 6.2 gm/dL (6.4-8.2)
[2021-11-11 06:31] LABS: BASO % 0.1 % (0.0-1.0); EOS % 0.3 % (1.0-4.0); HEMATOCRIT 29.7 % (37.0-47.0); LYMPH # 0.9 10*3/uL (1.3-4.4); LYMPH % 9.7 % (27.0-41.0); MEAN CELL VOLUME 94.6 fl (81.0-99.0); MEAN CORPUSCULAR HGB 28.7 pg (27.0-31.0); MEAN CORPUSCULAR HGB CONC 30.3 g/dl (33.0-37.0); MEAN PLATELET VOLUME 10.3 fl (9.6-12.3); MONO # 0.4 10*3/uL (0.1-1.0); MONO % 3.9 % (3.0-9.0); NEUT % 85.6 % (47.0-73.0); PLATELET COUNT AUTOMATED 216 10*3/uL (130-400); RED BLOOD COUNT 3.14 10*6/uL (4.10-5.10); RED CELL DISTRI WIDTH 16.1 % (0-14.5); WHITE BLOOD COUNT 9.4 10*3/uL (4.8-10.8)
[2021-11-11 08:00] VITALS: BP 112/65
[2021-11-11 16:00] VITALS: BP 118/73
[2021-11-11 20:00] VITALS: BP 90/52
[2021-11-11 23:37] LABS: BUN 17 mg/dl (7-24); CHLORIDE 107 mmol/L (98-107); CREATININE 0.91 mg/dL (0.55-1.02); POTASSIUM 4.6 mmol/L (3.5-5.1); SODIUM 138 mmol/L (136-145)
[2021-11-12] VITALS: BP 118/68
[2021-11-12 05:50] LABS: BUN 16 mg/dl (7-24); CHLORIDE 106 mmol/L (98-107); CREATININE 0.83 mg/dL (0.55-1.02); POTASSIUM 4.6 mmol/L (3.5-5.1); SODIUM 136 mmol/L (136-145)
[2021-11-12 06:58] LABS: BASO % 0.1 % (0.0-1.0); EOS # 0.1 10*3/uL (0.0-0.4); EOS % 1.7 % (1.0-4.0); HEMATOCRIT 31.2 % (37.0-47.0); LYMPH # 0.8 10*3/uL (1.3-4.4); LYMPH % 11.2 % (27.0-41.0); MEAN CELL VOLUME 94.5 fl (81.0-99.0); MEAN CORPUSCULAR HGB 28.8 pg (27.0-31.0); MEAN CORPUSCULAR HGB CONC 30.4 g/dl (33.0-37.0); MONO # 0.3 10*3/uL (0.1-1.0); MONO % 4.6 % (3.0-9.0); NEUT # 5.9 10*3/uL (2.3-7.9); NEUT % 81.8 % (47.0-73.0); PLATELET COUNT AUTOMATED 211 10*3/uL (130-400); RED CELL DISTRI WIDTH 16.2 % (0-14.5); WHITE BLOOD COUNT 7.3 10*3/uL (4.8-10.8)
[2021-11-12 08:00] VITALS: BP 97/83
[2021-11-12 12:00] VITALS: BP 134/66
[2021-11-12 16:00] VITALS: BP 94/42
[2021-11-12 20:00] VITALS: BP 124/56
[2021-11-13] VITALS (8 sets, daily range): BP systolic 108–140; BP diastolic 56–76
[2021-11-13 04:27] LABS: BASO % 0.3 % (0.0-1.0); EOS # 0.1 10*3/uL (0.0-0.4); EOS % 1.3 % (1.0-4.0); HEMATOCRIT 28.3 % (37.0-47.0); LYMPH # 1.2 10*3/uL (1.3-4.4); LYMPH % 15.3 % (27.0-41.0); MEAN CELL VOLUME 91.6 fl (81.0-99.0); MEAN CORPUSCULAR HGB 29.1 pg (27.0-31.0); MEAN CORPUSCULAR HGB CONC 31.8 g/dl (33.0-37.0); MEAN PLATELET VOLUME 9.6 fl (9.6-12.3); MONO # 0.3 10*3/uL (0.1-1.0); MONO % 3.8 % (3.0-9.0); NEUT # 6.1 10*3/uL (2.3-7.9); NEUT % 78.9 % (47.0-73.0); PLATELET COUNT AUTOMATED 212 10*3/uL (130-400); RED BLOOD COUNT 3.09 10*6/uL (4.10-5.10); RED CELL DISTRI WIDTH 16.4 % (0-14.5); WHITE BLOOD COUNT 7.7 10*3/uL (4.8-10.8)
[2021-11-13 04:40] LABS: BUN 12 mg/dl (7-24); CHLORIDE 102 mmol/L (98-107); CREATININE 0.77 mg/dL (0.55-1.02); POTASSIUM 4.1 mmol/L (3.5-5.1); SODIUM 135 mmol/L (136-145)
[2021-11-14] VITALS: BP 103/55
[2021-11-14 04:56] LABS: BASO % 0.3 % (0.0-1.0); EOS # 0.2 10*3/uL (0.0-0.4); HEMATOCRIT 30.3 % (37.0-47.0); LYMPH # 0.9 10*3/uL (1.3-4.4); LYMPH % 14.9 % (27.0-41.0); MEAN CELL VOLUME 93.2 fl (81.0-99.0); MEAN CORPUSCULAR HGB 29.2 pg (27.0-31.0); MEAN CORPUSCULAR HGB CONC 31.4 g/dl (33.0-37.0); MEAN PLATELET VOLUME 9.6 fl (9.6-12.3); MONO # 0.3 10*3/uL (0.1-1.0); MONO % 4.3 % (3.0-9.0); NEUT # 4.7 10*3/uL (2.3-7.9); NEUT % 77.2 % (47.0-73.0); PLATELET COUNT AUTOMATED 210 10*3/uL (130-400); RED BLOOD COUNT 3.25 10*6/uL (4.10-5.10); RED CELL DISTRI WIDTH 16.6 % (0-14.5); WHITE BLOOD COUNT 6.1 10*3/uL (4.8-10.8)
[2021-11-14 06:23] LABS: BUN 11 mg/dl (7-24); CHLORIDE 102 mmol/L (98-107); CREATININE 0.78 mg/dL (0.55-1.02); POTASSIUM 4.1 mmol/L (3.5-5.1); SODIUM 136 mmol/L (136-145)
[2021-11-14 08:00] VITALS: BP 123/59
[2021-11-14 12:00] VITALS: BP 98/63
[2021-11-14 16:00] VITALS: BP 91/50
[2021-11-14 20:00] VITALS: BP 110/67
[2021-11-15] VITALS: BP 107/61
[2021-11-15 08:00] VITALS: BP 120/57
[2021-11-15 12:00] VITALS: BP 123/71
[2021-11-15] MEDS ORDERED: AMPICILLIN2 GM IJ (13:17)
[2021-11-15] MEDS ORDERED: ELIQUIS5 M1 PO (13:17)
== END 2021-11-15 15:23 | disposition short-term general hospital (02) | DRG 871 ==
LOC: ED 12:03 → 4E 15:11 → EDHOLD 15:11 → 4E 16:02
PROVIDERS: Emergency Medicine; Internal Medicine; ADMIT Internal Medicine; ATTEND Internal Medicine
PROC: B24BZZ4 Ultrasonography of Heart with Aorta, Transesophageal (ICD-10-PCS; principal; 2021-11-13)
DX: A41.81 Sepsis due to Enterococcus (principal); J18.9 Pneumonia, unspecified organism; I33.0 Acute and subacute infective endocarditis; J96.01 Acute respiratory failure with hypoxia; E44.0 Moderate protein-calorie malnutrition; I48.21 Permanent atrial fibrillation; I69.354 Hemiplegia and hemiparesis following cerebral infarction affecting left non-dominant side; R65.20 Severe sepsis without septic shock; Z20.822 Contact with and (suspected) exposure to COVID-19; D64.9 Anemia, unspecified; E83.41 Hypermagnesemia; N28.9 Disorder of kidney and ureter, unspecified; I34.0 Nonrheumatic mitral (valve) insufficiency; I45.10 Unspecified right bundle-branch block; N18.31 Chronic kidney disease, stage 3a; G40.909 Epilepsy, unspecified, not intractable, without status epilepticus; E03.9 Hypothyroidism, unspecified; F41.9 Anxiety disorder, unspecified; I12.9 Hypertensive chronic kidney disease with stage 1 through stage 4 chronic kidney disease, or unspecified chronic kidney disease; I69.30 Unspecified sequelae of cerebral infarction; Z95.810 Presence of automatic (implantable) cardiac defibrillator; Z68.29 Body mass index [BMI] 29.0-29.9, adult; Z88.1 Allergy status to other antibiotic agents; Z88.8 Allergy status to other drugs, medicaments and biological substances; Z79.82 Long term (current) use of aspirin; Z79.51 Long term (current) use of inhaled steroids; Z79.899 Other long term (current) drug therapy; Z90.49 Acquired absence of other specified parts of digestive tract